=== PATIENT | female | born 2000 | race Caucasian/White ===

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

== ENCOUNTER 2021-01-03 22:41 | Emergency (ER) | payer MEDICAID, SELFPAY ==
[2020-11-01 10:48] VITALS: BP 114/78; BMI 40.5
[2021-01-03 22:45] VITALS: BP 107/59; PULSE 78; RESP 18; TEMP 37.1; O2SAT 98; BMI 42.4
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
[2021-01-03 23:45] LABS: Glucose Urine UA Norm (Normal); Ketones Urine Negative (Negative); Protein Urine Neg (Negative); Urine Appearance Hazy (CLEAR); Urine Color Yellow (Yellow); pH Urine 5 (5-7)
[2021-01-03 23:46] LABS: Bacteria Urine 3+ /hpf; Bilirubin Urine Neg (Negative); Blood Urine Neg (Negative); Leukocyte Esterase Urine Trace (Negative); Mucus Urine 1+ /hpf; Nitrate Urine Negative (Negative); RBC Urine 0-4 /hpf (0-2); Urobilinogen Urine Norm (Negative)
[2021-01-03 23:47] LABS: Add Urine Culture? Yes; Amorphous Sediment Urine TRACE /hpf
[2021-01-04 00:39] LABS: Basophils % 0.5 %; Eosinophils # 0.1 10^3/uL (0.0-0.8); Eosinophils % 1.6 %; Hematocrit 35.8 % (37.0-47.0); Hemoglobin 11.8 g/dL (11.5-15.3); Lymphocytes % 27.1 %; Mean Corpuscular Hemoglobin 30.2 pg (28.0-34.0); Mean Corpuscular Volume 91.6 fl (81-99); Mean Platelet Volume 9.7 fL (7.4-10.4); Monocytes # 0.5 10^3/uL (0.2-0.9); Monocytes % 6.8 %; Neutrophils # 4.69 10^3/uL (1.8-8.0); Neutrophils % 63.9 %; Nucleated Red Blood Cells % 0 %; Platelet Count 203 10^3/cmm (130-400); Red Blood Count 3.91 10^6/uL (4.1-5.3); White Blood Count 7.4 10^3/uL (4.5-13.0)
[2021-01-04] MEDS: acetaminophen 500 mg Tablet 1000 MG PO (00:44)
[2021-01-04 01:03] LABS: Alanine Aminotransferase 27 U/L (0-33); Albumin Level 3.9 g/dL (3.5-5.2); Alkaline Phosphatase 59 IU/L (35-105); Anion Gap 15.7 (5-19); Aspartate Amino Transferase 17 U/L (0-32); Blood Urea Nitrogen 11 mg/dL (6-20); Calcium 8.2 mg/dL (8.5-10.5); Carbon Dioxide 24 mmol/L (22-29); Chloride 101 mmol/L (98-107); Globulin 2.2 g/dL (1.3-4.6); Glomerular Filtration Rate 107.8 mL/min (90-130); Glucose 84 mg/dL (65-115); Osmolality Calculated 283 mOsm/kg (285-295); Potassium 3.7 mmol/L (3.5-5.1); Sodium 137 mmol/L (136-145); Total Bilirubin 0.3 mg/dL (0.15-1.2); Total Protein 6.1 g/dL (6.6-8.7)
[2021-01-04 01:39] VITALS: BP 103/69; PULSE 76; RESP 17; O2SAT 97
== END 2021-01-04 01:43 | disposition home or self-care (01) ==
PROVIDERS: Emergency Provider Physician Assistant
DX: O23.41 Unspecified infection of urinary tract in pregnancy, first trimester (principal); O26.891 Other specified pregnancy related conditions, first trimester; R10.9 Unspecified abdominal pain; Z3A.01 Less than 8 weeks gestation of pregnancy; Z87.891 Personal history of nicotine dependence
CPT/HCPCS: 73562; 76815; 76817; 80053; 81001; 84702; 85025; 87086; 99283

== ENCOUNTER → 2021-01-06 13:00 | Outpatient (BNVA) | payer OTHER, MEDICAID, SELFPAY ==
[2020-11-01 10:48] VITALS: BP 114/78; BMI 40.5
== END ==
PROVIDERS: Visit Provider Psychiatry & Neurology Psychiatry
DX: F33.0 Major depressive disorder, recurrent, mild (principal); F43.10 Post-traumatic stress disorder, unspecified; R41.83 Borderline intellectual functioning
CPT/HCPCS: 99215

== ENCOUNTER → 2021-01-20 10:53 | Outpatient (BNVA) | payer MEDICAID, SELFPAY ==
[2020-11-01 10:48] VITALS: BP 114/78; BMI 40.5
== END ==
PROVIDERS: Visit Provider Nurse Practitioner Women's Health
DX: Z34.80 Encounter for supervision of other normal pregnancy, unspecified trimester (principal)
CPT/HCPCS: 81000

== ENCOUNTER 2021-01-21 21:30 | Emergency (ER) | payer MEDICAID, SELFPAY ==
[2020-11-01 10:48] VITALS: BP 114/78; BMI 40.5
[2021-01-21 21:30] VITALS: PULSE 79; RESP 20; O2SAT 97
[2021-01-21] MEDS: albuterol 8 gm MDI 2 PUFF INHALATION (21:30)
[2021-01-21 21:35] VITALS: BP 124/85; PULSE 79; PULSE 81; RESP 20; TEMP 36.8; O2SAT 91; O2SAT 97; BMI 35.9
[2021-01-21 21:41] VITALS: PULSE 74; O2SAT 95
--- NOTE | 2021-01-21 21:56 | ED_ITS ---
HPI - SOB/Dyspnea General: Chief Complaint: Shortness of Breath/Dyspnea Stated Complaint: Coughing\SOB 8wk Time Seen by Provider: 01/21/21 21:54 History of Present Illness: HPI Narrative: 20-year-old female comes in today with complaints of shortness of breath. Patient has a history of asthma. Patient reports for the last week she has had difficulty with her breathing. Patient has also had some nausea and vomiting on and off for the last week. Review of Systems General: Reports: 10 or more systems reviewed and unremarkable except in HPI and below Resp: Reports: dyspnea PFSH ED PFSH: Medical History (Updated 01/21/21 @ 23:58 by ABRAHAN Leone) Abdominal pain in female Asthma has needed her rescue inhaler MDD (major depressive disorder), recurrent episode, mild managed by Dr. Martin at [facility] No pertinent past medical history neghx: htn,dm,thyroid,dvt/pe Oligomenorrhea PTSD (post-traumatic stress disorder) Surgical History History of elbow surgery (~2011) L elbow Family History Father Diabetes Hypertension Grandfather , old age Diabetes Hypertension Denies family history of Colon cancer Ovarian cancer Heart disease Hypercholesteremia Breast cancer Uterine cancer Thyroid disease Stroke Social History Smoking and tobacco status: former smoker (vape) Second hand smoke exposure: No Alcohol intake: never Desire information about alcohol rehabilitation?: No Desire information about substance/drug rehabilitation?: No Female Reproductive History: Date of last menstrual period: 11/06/20 Para: 0 Spontaneous abortions: No Physical Exam Const: COMMON NORMALS: no acute distress and patient oriented x3 GENERAL APPEARANCE: cooperative HENMT: COMMON NORMALS: normocephalic, TM's normal bilaterally and Normal external nose present HEAD & SCALP: normal to inspection and normocephalic NOSE: Normal external nose present TYMPANIC MEMBRANE: TM's normal bilaterally MOUTH: Normal oral and palatal mucosa present THROAT: posterior oropharynx normal Eye: GENERAL EYE: appearance normal, both eyes and all related structures Neck/C-Spine: COMMON NORMALS: full ROM Lymph: LYMPHATIC: no lymphadenopathy noted Chest: COMMONS NORMALS: normal inspection of the chest Resp: COMMON NORMALS: normal respiratory effort EFFORT & INSPECTION: Yes able to speak in complete sentences AUSCULTATION: wheezes Cardio: COMMON NORMALS: regular rate and regular rhythm RATE: regular rate RHYTHM: regular rhythm GI: COMMON NORMALS: non-tender : COMMON NORMALS: Yes no CVA tenderness BLADDER/KIDNEY EXAM: Yes no CVA tenderness Back/Pelvis: COMMON NORMALS: no CVA tenderness and thoracic and lumbar spine normal to inspection Extremity: COMMON NORMALS: normal to inspection Neuro: COMMON NORMALS: patient oriented x3 and moves all extremities Psych: COMMON NORMALS: mental status grossly normal and cooperative Skin: COMMON NORMALS: no rashes or lesions noted GENERAL SKIN EXAM: no rashes or lesions noted Course Vital Signs: Vital signs: Vital Signs Temperature 98.2 F 01/21/21 21:35 Pulse Rate 65 01/21/21 23:00 Respiratory Rate 22 H 01/21/21 23:00 Blood Pressure 102/44 01/21/21 23:00 Pulse Oximetry 96 01/21/21 23:00 MDM - SOB/Dyspnea MDM Narrative: Medical decision making narrative: Patient comes in with shortness of breath. On exam patient has wheezing throughout her lung petersen. Skin was warm and dry vital signs were normal. Differential diagnosis includes COVID-19, exacerbation of asthma, pneumonia. Patient was given albuterol inhalation with improvement of air movement throughout lung petersen. Patient was given a dose of Solu-Medrol. Patient was encouraged to drink plenty of fluids. Patient will be continued on MDI inhaler for albuterol, Advair Diskus, and a short burst of steroid prednisone. Patient was written for some Zofran to help with nausea. Patient was encouraged to drink plenty of fluids and follow-up with primary care in 3 days for recheck. Patient was also recommended return for worsening symptoms. Lab Data: Labs: Lab Results 01/21/21 01/21/21 01/21/21 Range/Units 21:41 22:30 22:30 WBC 10.1 (4.5-13.0) 10^3/ uL RBC 4.35 (4.1-5.3) 10^6/u L Hgb 13.0 (11.5-15.3) g/dL Hct 40.3 (37.0-47.0) % MCV 92.6 (81-99) fl MCH 29.9 (28.0-34.0) pg MCHC 32.3 (30.0-36.0) g/dL RDW 12.3 (12.1-15.1) % Plt Count 233 (130-400) 10^3/c mm MPV 10.2 (7.4-10.4) fL Neut % (Auto) 74.9 % Lymph % (Auto) 15.0 % [place] % (Auto) 6.3 % Eos % (Auto) 3.0 % Baso % (Auto) 0.5 % Neut # (Auto) 7.56 (1.8-8.0) 10^3/u L Lymph # (Auto) 1.5 (1.5-6.5) 10^3/u L [place] # (Auto) 0.6 (0.2-0.9) 10^3/u L Eos # (Auto) 0.3 (0.0-0.8) 10^3/u L Baso # (Auto) 0.1 (0.0-0.1) 10^3/u L Nucleated RBC % (a uto) 0 % Nucleated RBCs # 0.0 /100WBC Sodium 137 (136-145) mmol/L Potassium 3.9 (3.5-5.1) mmol/L Chloride 103 (98-107) mmol/L Carbon Dioxide 21 L (22-29) mmol/L Anion Gap 16.9 (5-19) BUN 11 (6-20) mg/dL Creatinine 0.5 (0.5-0.9) mg/dL GFR Calculation 158.9 H (90-130) mL/min Glucose 94 (65-115) mg/dL Calculated Osmolal ity 283 L (285-295) mOsm/k g Calcium 8.6 (8.5-10.5) mg/dL Total Bilirubin 0.5 (0.15-1.2) mg/dL AST 61 H (0-32) U/L ALT 134 H (0-33) U/L Alkaline Phosphata se 93 (35-105) IU/L Total Protein 7.2 (6.6-8.7) g/dL Albumin 3.7 (3.5-5.2) g/dL Globulin 3.5 (1.3-4.6) g/dL HCG, Qual (Negative) Urine Color Yellow (Yellow) Urine Appearance Clear (CLEAR) Urine pH 5 (5-7) Ur Specific Gravit y 1.025 (1.005-1.030) Urine Protein Neg (Negative) Urine Glucose (UA) Norm (Normal) Urine Ketones Negative (Negative) Urine Blood Neg (Negative) Urine Nitrate Negative (Negative) Urine Bilirubin 1+ H (Negative) Urine Urobilinogen 1 H (Negative) mg/dL Ur Leukocyte Mabel ase Negative (Negative) SARS-CoV-2 Ag (Rap id) (Negative) 01/21/21 01/21/21 Range/Units 22:30 22:30 WBC (4.5-13.0) 10^3/ uL RBC (4.1-5.3) 10^6/u L Hgb (11.5-15.3) g/dL Hct (37.0-47.0) % MCV (81-99) fl MCH (28.0-34.0) pg MCHC (30.0-36.0) g/dL RDW (12.1-15.1) % Plt Count (130-400) 10^3/c mm MPV (7.4-10.4) fL Neut % (Auto) % Lymph % (Auto) % [place] % (Auto) % Eos % (Auto) % Baso % (Auto) % Neut # (Auto) (1.8-8.0) 10^3/u L Lymph # (Auto) (1.5-6.5) 10^3/u L [place] # (Auto) (0.2-0.9) 10^3/u L Eos # (Auto) (0.0-0.8) 10^3/u L Baso # (Auto) (0.0-0.1) 10^3/u L Nucleated RBC % (a uto) % Nucleated RBCs # /100WBC Sodium (136-145) mmol/L Potassium (3.5-5.1) mmol/L Chloride (98-107) mmol/L Carbon Dioxide (22-29) mmol/L Anion Gap (5-19) BUN (6-20) mg/dL Creatinine (0.5-0.9) mg/dL GFR Calculation (90-130) mL/min Glucose (65-115) mg/dL Calculated Osmolal ity (285-295) mOsm/k g Calcium (8.5-10.5) mg/dL Total Bilirubin (0.15-1.2) mg/dL AST (0-32) U/L ALT (0-33) U/L Alkaline Phosphata se (35-105) IU/L Total Protein (6.6-8.7) g/dL Albumin (3.5-5.2) g/dL Globulin (1.3-4.6) g/dL HCG, Qual Positive H (Negative) Urine Color (Yellow) Urine Appearance (CLEAR) Urine pH (5-7) Ur Specific Gravit y (1.005-1.030) Urine Protein (Negative) Urine Glucose (UA) (Normal) Urine Ketones (Negative) Urine Blood (Negative) Urine Nitrate (Negative) Urine Bilirubin (Negative) Urine Urobilinogen (Negative) mg/dL Ur Leukocyte Mabel ase (Negative) SARS-CoV-2 Ag (Rap id) Negative (Negative) Discharge Plan Discharge Patient Disposition: Home Clinical Impression: Asthma Qualifiers: Asthma severity: mild Asthma persistence: intermittent Asthma complication type: with acute exacerbation Qualified Code(s): J45.21 - Mild intermittent asthma with (acute) exacerbation Condition: Stable Prescriptions: New Advair Diskus 100-50 mcg/dose blister with device 1 inh inhalation BID Qty: 60 RF: 0 prednisone 20 mg tablet 40 mg PO DAILY Qty: 10 RF: 0 ondansetron 4 mg tablet,disintegrating 4 mg PO Q8H PRN (Reason: nausea and vomiting) Qty: 14 RF: 0 albuterol sulfate 90 mcg/actuation HFA aerosol inhaler 2 inh inhalation Q4H PRN (Reason: shortness of breath or wheezing) Qty: 8.5 RF: 0 No Action fluoxetine [Prozac] 20 mg capsule 20 mg PO DAILY Qty: 30 RF: 5 1 tab PO DAILY RF: 0 Discharge Orders: Discharge ED (Routine); Ordered 01/21/21 Ordered By: Rhett Lott Discharge Diet: Usual diet Discharge Activity: Increase activity as tolerated Patient Instructions: Asthma (ED), Opioid Safety Activity Restrictions/Additional Instructions: Home and rest. Continue with albuterol inhaler 2 puffs every 4 hours for wheezing or respiratory difficulty. Take prednisone 40 mg daily for the next 5 days. Use Advair Diskus 1 inhalation twice a day. Use ondansetron 4 mg every 8 hours as needed for nausea. Return to the ER for worsening symptoms. Follow- up with primary care in 1 week. Coding Level of Care Code ED Precision Dancer for Leonides Okeefe
[2021-01-21] MEDS: ondansetron 2 mg/ML SDV 2 mL 4 MG IVP (22:29)
[2021-01-21] MEDS: sodium chloride 0.9% 1,000 ML 999 ML IV (22:31)
[2021-01-21 22:32] LABS: Basophils # 0.1 10^3/uL (0.0-0.1); Basophils % 0.5 %; Eosinophils # 0.3 10^3/uL (0.0-0.8); Hematocrit 40.3 % (37.0-47.0); Lymphocytes # 1.5 10^3/uL (1.5-6.5); Mean Corpuscular HGB Conc 32.3 g/dL (30.0-36.0); Mean Corpuscular Hemoglobin 29.9 pg (28.0-34.0); Mean Corpuscular Volume 92.6 fl (81-99); Mean Platelet Volume 10.2 fL (7.4-10.4); Monocytes # 0.6 10^3/uL (0.2-0.9); Monocytes % 6.3 %; Neutrophils # 7.56 10^3/uL (1.8-8.0); Neutrophils % 74.9 %; Nucleated Red Blood Cells % 0 %; Platelet Count 233 10^3/cmm (130-400); Red Blood Count 4.35 10^6/uL (4.1-5.3); Red Cell Distribution Width 12.3 % (12.1-15.1); White Blood Count 10.1 10^3/uL (4.5-13.0)
[2021-01-21 22:45] LABS: HCG, Serum Qual Positive (Negative)
[2021-01-21 22:50] LABS: Alanine Aminotransferase 134 U/L (0-33); Albumin Level 3.7 g/dL (3.5-5.2); Alkaline Phosphatase 93 IU/L (35-105); Anion Gap 16.9 (5-19); Aspartate Amino Transferase 61 U/L (0-32); Blood Urea Nitrogen 11 mg/dL (6-20); Calcium 8.6 mg/dL (8.5-10.5); Carbon Dioxide 21 mmol/L (22-29); Chloride 103 mmol/L (98-107); Globulin 3.5 g/dL (1.3-4.6); Glomerular Filtration Rate 158.9 mL/min (90-130); Glucose 94 mg/dL (65-115); Osmolality Calculated 283 mOsm/kg (285-295); Potassium 3.9 mmol/L (3.5-5.1); Sodium 137 mmol/L (136-145); Total Bilirubin 0.5 mg/dL (0.15-1.2); Total Protein 7.2 g/dL (6.6-8.7)
[2021-01-21 22:54] LABS: Add Urine Microscopic? NO; Charge for UA Resulting for Rev
[2021-01-21 23:00] VITALS: BP 102/44; PULSE 65; RESP 22; O2SAT 96
[2021-01-21 23:02] LABS: Bilirubin Urine 1+ (Negative); Blood Urine Neg (Negative); Glucose Urine UA Norm (Normal); Ketones Urine Negative (Negative); Leukocyte Esterase Urine Negative (Negative); Nitrate Urine Negative (Negative); Protein Urine Neg (Negative); Specific Gravity, Urine 1.025 (1.005-1.030); Urine Appearance Clear (CLEAR); Urine Color Yellow (Yellow); Urobilinogen Urine 1 mg/dL (Negative); pH Urine 5 (5-7)
[2021-01-21 23:28] LABS: SARS Covid-2 Antigen Negative (Negative)
[2021-01-22 00:21] VITALS: BP 94/58; PULSE 81; RESP 16; O2SAT 96
== END 2021-01-22 00:23 | disposition home or self-care (01) ==
PROVIDERS: Emergency Provider Nurse Practitioner Family
DX: O26.891 Other specified pregnancy related conditions, first trimester (principal); J45.21 Mild intermittent asthma with (acute) exacerbation; Z87.891 Personal history of nicotine dependence; Z20.822 Contact with and (suspected) exposure to COVID-19; Z3A.08 8 weeks gestation of pregnancy
CPT/HCPCS: 80053; 81003; 84703; 85025; 87426; 94640; 96361; 96374; 96375; 99284; J2405; J2930; J3535; J7030

== ENCOUNTER 2021-02-17 11:15 | Emergency (ER) | payer MEDICAID, SELFPAY ==
[2020-11-01 10:48] VITALS: BP 114/78; BMI 40.5
[2021-02-17] VITALS (7 sets, daily range): BP systolic 100–139; BP diastolic 56–100; PULSE 62–84; RESP 16–18; TEMP 36; O2SAT 97–100; BMI 41.5
--- NOTE | 2021-02-17 13:42 | ED_ITS ---
HPI - Fall General: Chief Complaint: Fall Stated Complaint: FELL 4 STEPS,LANDED ON BACK,H/A,STOMACH BURN Time Seen by Provider: 02/17/21 13:29 History of Present Illness: HPI Narrative: 20 yo female presents emergency room with complaints of a fall. She is approximately 12 weeks fell down 4 steps hit her back she has abrasion on her back he is uncertain if she lost consciousness. She denies striking her head she was quite stunned she denies any vaginal discharge or bleeding. MD complaint: fall Onset (ago): minute(s) Fall from: standing and down stairs (#) (4) Place fall occurred: street Loss of consciousness: Unsure Prolonged down time: no Context: tripped/slipped Location of injury: back Severity: moderate Quality: aching Associated symptoms-after fall: Denies abdominal pain, chest pain, confusion, difficulty walking, headache(s), hematuria, lightheadedness, numbness, short of breath, vertigo or weakness Review of Systems Const: Denies: fever(s), chills, body aches, change in appetite, fatigue or malaise ENMT: Denies: throat pain, ear or mastoid pain, nasal discharge or nasal congestion Card: Denies: chest pain or lightheadedness Resp: Denies: dyspnea, productive cough or non-productive cough GI: Denies: abdominal pain : Denies: hematuria Skin/Breast: Denies: rash or pruritus Neuro: Denies: headache(s), difficulty walking, vertigo or confusion PFSH ED PFSH: Medical History Abdominal pain in female Asthma has needed her rescue inhaler MDD (major depressive disorder), recurrent episode, mild managed by Dr. Martin at [facility] No pertinent past medical history neghx: htn,dm,thyroid,dvt/pe Oligomenorrhea PTSD (post-traumatic stress disorder) Surgical History History of elbow surgery (~2011) L elbow Family History Father Diabetes Hypertension Grandfather , old age Diabetes Hypertension Denies family history of Colon cancer Ovarian cancer Heart disease Hypercholesteremia Breast cancer Uterine cancer Thyroid disease Stroke Social History Smoking and tobacco status: former smoker (vape) Second hand smoke exposure: No Alcohol intake: never Desire information about alcohol rehabilitation?: No Desire information about substance/drug rehabilitation?: No Female Reproductive History: Date of last menstrual period: 11/06/20 Para: 0 Spontaneous abortions: No Physical Exam Const: COMMON NORMALS: no acute distress GENERAL APPEARANCE: cooperative and comfortable ORIENTATION/CONSCIOUSNESS: Yes awake, Yes oriented to person, Yes oriented to place and Yes oriented to time HENMT: COMMON NORMALS: normocephalic, atraumatic and hearing grossly normal bilaterally HEAD & SCALP: normocephalic and atraumatic Neck/C-Spine: COMMON NORMALS: no JVD Resp: COMMON NORMALS: normal respiratory effort, No retractions, No use of accessory muscles and clear to auscultation bilaterally AUSCULTATION: clear to auscultation bilaterally Cardio: COMMON NORMALS: no JVD, regular rate, regular rhythm and No murmurs present (Cardio) RATE: regular rate RHYTHM: regular rhythm GI: COMMON NORMALS: Soft to palpation and No hepatosplenomegaly present AUSCULTATION: Yes normoactive bowel sounds PALPATION: Yes Soft to palpation, No Tenderness to palpation present (GI), No Guarding due to palpation present (GI) and Yes No hepatosplenomegaly present Extremity: COMMON NORMALS: normal to inspection, capillary refill normal, no clubbing, cyanosis or edema, no calf tenderness and no pedal edema Neuro: SENSORIUM/ORIENTATION: Yes oriented to person, Yes oriented to place and Yes oriented to time Skin: COMMON NORMALS: no rashes or lesions noted GENERAL SKIN EXAM: no rashes or lesions noted Course Vital Signs: Vital signs: Vital Signs Temperature 96.8 F L 02/17/21 11:46 Pulse Rate 78 02/17/21 11:46 Respiratory Rate 16 02/17/21 11:46 Blood Pressure 112/83 02/17/21 11:46 Pulse Oximetry 97 02/17/21 11:46 Discharge Plan Discharge Prescriptions: No Action fluoxetine [Prozac] 20 mg capsule 20 mg PO DAILY Qty: 30 RF: 5 1 tab PO DAILY RF: 0 fluticasone propion-salmeterol [Advair Diskus] 100-50 mcg/dose blister with device 1 inh inhalation BID Qty: 60 RF: 0 albuterol sulfate 90 mcg/actuation HFA aerosol inhaler 2 inh inhalation Q4H PRN (Reason: shortness of breath or wheezing) Qty: 8.5 RF: 0 Coding Level of Care Code ED Education Program Specialist for Leonides Okeefe
--- NOTE | 2021-02-17 13:47 | XR_ITS ---
WS: [id number] CERVICAL SPINE 3 VIEWS HISTORY: fall COMPARISON: 06/13/2013. Patient's head is tilted to the RIGHT. Similar to the prior study 06/13/2013. Posterior vertebral body alignment is normal. Disc spaces are normal. No prevertebral soft tissue sherice ma. Spinous processes are poorly visualized. Odontoid is intact. There is mild asymmetry of the lateral masses with respect to the odontoid proces s. Mild narrowing of the LEFT joint space which could very well be due to positioning and also simila r to the prior study of 2013. XR/XR cervical spine 3V* [id number] IMPRESSION: 1. No cervical spine fracture. 2. Asymmetry of the LEFT lateral mass with respect to the odontoid and tilting of the head to the RIGHT. These findings were also present on the prior study from 2013 with no change.
--- NOTE | 2021-02-17 13:47 | XR_ITS ---
WS: [id number] Exam: XR thoracic spine 3V* [id number] Date/Time of Exam: 02/17/2021 2:06 PM Reason For Exam: pain fall Comparison 06/13/2013. Slight wedge deformity of a single lower thoracic vertebra noted which is unchanged and probably deve lopmental. No acute fracture is seen. Normal paraspinal soft tissues. No significant scoliosis. XR/XR thoracic spine 3V* [id number] IMPRESSION: 1. No acute fracture or malalignment.
--- NOTE | 2021-02-17 13:49 | CT_ITS ---
WS: [id number] CT HEAD NONCONTRAST HISTORY: fall possible LOC TECHNIQUE: Contiguous axial imaging performed through the brain in 2.5 mm imaging. Bone and soft tiss ue windows. Sagittal and coronal reformats reviewed. All CT scans at [facility] use at least one of these dose optimization techniques: automated exposure control; mA and/or kV adjustment per pa tient size (includes targeted exams where dose is matched to clinical indication); or iterative recon struction. DLP: 863.07 mGy.cm COMPARISON: 01/09/2018 No acute intracranial hemorrhage, midline shift or mass effect. No atrophy or prior infarcts or herniation. Ventricles: Normal size with no hydrocephalus. Paranasal sinuses: As visualized are clear. Mastoid air cells: Well pneumatized. Calvarium and scalp: Skull is intact with no soft tissue edema or swelling. CT/CT head wo con* [id number] IMPRESSION: Negative head CT.
--- NOTE | 2021-02-17 14:24 | W.ED.FALL ---
HPI - Fall General: Chief Complaint: Fall Stated Complaint: FELL 4 STEPS,LANDED ON BACK,H/A,STOMACH BURN Time Seen by Provider: 02/17/21 13:29 History of Present Illness: HPI Narrative: 20-year-old female presents to the emergency room complaining of low back pain. She fell on four stairs at the back of her head is not sure if she lost consciousness. She has no dysuria urgency or frequency no vaginal bleeding or discharge she is approximately 12 weeks. MD complaint: fall Onset (ago): minute(s) Fall from: standing Fall witnessed: no Place fall occurred: home and street Prolonged down time: no Context: tripped/slipped Location of injury: head and back Quality: aching Associated symptoms-after fall: Denies abdominal pain, chest pain, confusion, difficulty walking, headache(s), hematuria, lightheadedness, neck pain, numbness, short of breath, vertigo or weakness Review of Systems Const: Denies: fever(s), chills, body aches, change in appetite, fatigue or malaise ENMT: Denies: throat pain, ear or mastoid pain, nasal discharge or nasal congestion Card: Denies: chest pain or lightheadedness Resp: Denies: dyspnea, productive cough or non-productive cough GI: Denies: abdominal pain : Denies: hematuria Musc: Denies: neck pain Skin/Breast: Denies: rash or pruritus Neuro: Denies: headache(s), difficulty walking, vertigo or confusion PFSH ED PFSH: Medical History Abdominal pain in female Asthma has needed her rescue inhaler MDD (major depressive disorder), recurrent episode, mild managed by Dr. Martin at [facility] No pertinent past medical history neghx: htn,dm,thyroid,dvt/pe Oligomenorrhea PTSD (post-traumatic stress disorder) Surgical History History of elbow surgery (~2011) L elbow Family History Father Diabetes Hypertension Grandfather , old age Diabetes Hypertension Denies family history of Colon cancer Ovarian cancer Heart disease Hypercholesteremia Breast cancer Uterine cancer Thyroid disease Stroke Social History Smoking and tobacco status: former smoker (vape) Second hand smoke exposure: No Alcohol intake: never Desire information about alcohol rehabilitation?: No Desire information about substance/drug rehabilitation?: No Female Reproductive History: Date of last menstrual period: 11/06/20 Para: 0 Spontaneous abortions: No Physical Exam Const: COMMON NORMALS: no acute distress GENERAL APPEARANCE: cooperative and comfortable ORIENTATION/CONSCIOUSNESS: Yes awake, Yes oriented to person, Yes oriented to place and Yes oriented to time HENMT: COMMON NORMALS: normocephalic, atraumatic, hearing grossly normal bilaterally, external ears normal, EAC's normal, TM's normal bilaterally, Normal nasal mucous membranes and turbinates present, moist oral mucous membranes and oropharynx normal HEAD & SCALP: normocephalic and atraumatic NOSE: Normal nasal mucous membranes and turbinates present EXTERNAL EAR: Yes external ears normal EXTERNAL AUDITORY CANAL: EAC's normal TYMPANIC MEMBRANE: TM's normal bilaterally Eye: COMMON NORMALS: Equal, round and reactive pupils present, EOMs intact bilaterally, conjunctivae normal and no scleral icterus CONJUNCTIVA: Yes conjunctivae normal PUPIL: Yes Equal, round and reactive pupils present Neck/C-Spine: COMMON NORMALS: full ROM, no lymphadenopathy, supple and no JVD Lymph: LYMPHATIC: no lymphadenopathy noted and no lymphedema noted Resp: COMMON NORMALS: normal respiratory effort, No retractions, No use of accessory muscles and clear to auscultation bilaterally AUSCULTATION: clear to auscultation bilaterally Cardio: COMMON NORMALS: no JVD, regular rate, regular rhythm and No murmurs present (Cardio) RATE: regular rate RHYTHM: regular rhythm GI: COMMON NORMALS: Soft to palpation and No hepatosplenomegaly present AUSCULTATION: Yes normoactive bowel sounds PALPATION: Yes Soft to palpation, No Tenderness to palpation present (GI), No Guarding due to palpation present (GI) and Yes No hepatosplenomegaly present Extremity: COMMON NORMALS: normal to inspection, capillary refill normal, no clubbing, cyanosis or edema, no calf tenderness and no pedal edema Neuro: SENSORIUM/ORIENTATION: Yes oriented to person, Yes oriented to place and Yes oriented to time Skin: COMMON NORMALS: no rashes or lesions noted GENERAL SKIN EXAM: no rashes or lesions noted Course Vital Signs: Vital signs: Vital Signs Temperature 96.8 F L 02/17/21 11:46 Pulse Rate 69 02/17/21 16:39 Respiratory Rate 18 02/17/21 16:39 Blood Pressure 100/78 02/17/21 16:39 Pulse Oximetry 100 02/17/21 16:39 MDM - Fall MDM Narrative: Medical decision making narrative: Labs and imaging reviewed initial evaluation and repeat exam unremarkable. Reassurance given. At this point in uterus is still within the pelvis and is not subjective to any significant trauma from what she had today she denies any vaginal bleeding or discharge follow-up with her primary care doctor is any return of his further problems. Lab Data: Labs: Lab Results 02/17/21 02/17/21 02/17/21 14:10 14:10 14:30 WBC 7.1 10^3/uL 10^3/ uL (4.5-13.0) RBC 4.48 10^6/uL 10^6 /uL (4.1-5.3) Hgb 13.5 g/dL g/dL (11.5-15.3) Hct 40.6 % % (37.0-47.0) MCV 90.6 fl fl (81-99) MCH 30.1 pg pg (28.0-34.0) MCHC 33.3 g/dL g/dL (30.0-36.0) RDW 12.6 % % (12.1-15.1) Plt Count 179 10^3/cmm 10^3 /cmm (130-400) MPV 10.1 fL fL (7.4-10.4) Neut % (Auto) 77.3 % % Lymph % (Auto) 16.4 % % [place] % (Auto) 5.6 % % Eos % (Auto) 0.3 % % Baso % (Auto) 0.1 % % Neut # (Auto) 5.48 10^3/uL 10^3 /uL (1.8-8.0) Lymph # (Auto) 1.2 10^3/uL L 10^ 3/uL (1.5-6.5) [place] # (Auto) 0.4 10^3/uL 10^3/ uL (0.2-0.9) Eos # (Auto) 0.0 10^3/uL 10^3/ uL (0.0-0.8) Baso # (Auto) 0.0 10^3/uL 10^3/ uL (0.0-0.1) Nucleated RBC % (a uto) 0 % % Nucleated RBCs # 0.0 /100WBC /100W BC Sodium 134 mmol/L L mmol /L (136-145) Potassium 3.8 mmol/L mmol/L (3.5-5.1) Chloride 99 mmol/L mmol/L (98-107) Carbon Dioxide 24 mmol/L mmol/L (22-29) Anion Gap 14.8 (5-19) BUN 7 mg/dL mg/dL (6-20) Creatinine 0.6 mg/dL mg/dL (0.5-0.9) GFR Calculation 128.8 mL/min mL/m in (90-130) Glucose 74 mg/dL mg/dL (65-115) Calculated Osmolal ity 275 mOsm/kg L mOs m/kg (285-295) Calcium 9.1 mg/dL mg/dL (8.5-10.5) Total Bilirubin 0.4 mg/dL mg/dL (0.15-1.2) AST 31 U/L U/L (0-32) ALT 59 U/L H U/L (0-33) Alkaline Phosphata se 61 IU/L IU/L (35-105) Total Protein 7.0 g/dL g/dL (6.6-8.7) Albumin 4.1 g/dL g/dL (3.5-5.2) Globulin 2.9 g/dL g/dL (1.3-4.6) Urine Color Dark yellow (Yellow) Urine Appearance Hazy A (CLEAR) Urine pH 5 (5-7) Ur Specific Gravit y 1.025 (1.005-1.030) Urine Protein Neg (Negative) Urine Glucose (UA) Norm (Normal) Urine Ketones 2+ H (Negative) Urine Blood Neg (Negative) Urine Nitrate Negative (Negative) Urine Bilirubin Neg (Negative) Urine Urobilinogen 1 mg/dL H mg/dL (Negative) Ur Leukocyte Mabel ase Trace H (Negative) Urine RBC 0-4 /hpf H /hpf (0-2) Urine WBC 5-10 /hpf H /hpf (0-5) Ur Squamous Epith Cells 5-10 /hpf H /hpf (0-5) Amorphous Sediment Not Reportable Urine Bacteria 3+ /hpf H /hpf (NONE) Urine Mucus 2+ /hpf /hpf Discharge Plan Discharge Patient Disposition: Home Clinical Impression: Fall, 12 weeks gestation of Condition: Stable Prescriptions: No Action fluoxetine [Prozac] 20 mg capsule 20 mg PO DAILY Qty: 30 RF: 5 1 tab PO DAILY RF: 0 fluticasone propion-salmeterol [Advair Diskus] 100-50 mcg/dose blister with device 1 inh inhalation BID Qty: 60 RF: 0 albuterol sulfate 90 mcg/actuation HFA aerosol inhaler 2 inh inhalation Q4H PRN (Reason: shortness of breath or wheezing) Qty: 8.5 RF: 0 Discharge Orders: Discharge ED (Routine); Ordered 02/17/21 Ordered By: Rip Suh Discharge Diet: Usual diet Discharge Activity: Increase activity as tolerated Patient Instructions: Opioid Safety Activity Restrictions/Additional Instructions: Follow-up with your primary care doctor as needed Tylenol as needed for pain return if worsening problems Coding Level of Care Code ED Credit Risk Management Director for Leonides Okeefe
[2021-02-17 14:31] LABS: Basophils % 0.1 %; Eosinophils % 0.3 %; Hematocrit 40.6 % (37.0-47.0); Hemoglobin 13.5 g/dL (11.5-15.3); Lymphocytes # 1.2 10^3/uL (1.5-6.5); Lymphocytes % 16.4 %; Mean Corpuscular HGB Conc 33.3 g/dL (30.0-36.0); Mean Corpuscular Hemoglobin 30.1 pg (28.0-34.0); Mean Corpuscular Volume 90.6 fl (81-99); Mean Platelet Volume 10.1 fL (7.4-10.4); Monocytes # 0.4 10^3/uL (0.2-0.9); Monocytes % 5.6 %; Neutrophils # 5.48 10^3/uL (1.8-8.0); Neutrophils % 77.3 %; Nucleated Red Blood Cells % 0 %; Platelet Count 179 10^3/cmm (130-400); Red Blood Count 4.48 10^6/uL (4.1-5.3); Red Cell Distribution Width 12.6 % (12.1-15.1); White Blood Count 7.1 10^3/uL (4.5-13.0)
[2021-02-17 14:49] LABS: Alanine Aminotransferase 59 U/L (0-33); Albumin Level 4.1 g/dL (3.5-5.2); Alkaline Phosphatase 61 IU/L (35-105); Anion Gap 14.8 (5-19); Aspartate Amino Transferase 31 U/L (0-32); Blood Urea Nitrogen 7 mg/dL (6-20); Calcium 9.1 mg/dL (8.5-10.5); Carbon Dioxide 24 mmol/L (22-29); Chloride 99 mmol/L (98-107); Globulin 2.9 g/dL (1.3-4.6); Glomerular Filtration Rate 128.8 mL/min (90-130); Glucose 74 mg/dL (65-115); Osmolality Calculated 275 mOsm/kg (285-295); Potassium 3.8 mmol/L (3.5-5.1); Sodium 134 mmol/L (136-145); Total Bilirubin 0.4 mg/dL (0.15-1.2)
[2021-02-17 15:04] LABS: Glucose Urine UA Norm (Normal); Protein Urine Neg (Negative); Specific Gravity, Urine 1.025 (1.005-1.030); Urine Appearance Hazy (CLEAR); Urine Color Dark Yellow (Yellow); pH Urine 5 (5-7)
[2021-02-17 15:05] LABS: Add Urine Microscopic? YES; Bilirubin Urine Neg (Negative); Blood Urine Neg (Negative); Ketones Urine 2+ (Negative); Leukocyte Esterase Urine Trace (Negative); Nitrate Urine Negative (Negative); RBC Urine 0-4 /hpf (0-2); Urobilinogen Urine 1 mg/dL (Negative)
[2021-02-17 15:06] LABS: Add Urine Culture? Yes; Bacteria Urine 3+ /hpf; Mucus Urine 2+ /hpf
== END 2021-02-17 16:44 | disposition home or self-care (01) ==
PROVIDERS: Emergency Provider Family Medicine
DX: O9A.211 Injury, poisoning and certain other consequences of external causes complicating pregnancy, first trimester (principal); Z3A.12 12 weeks gestation of pregnancy; W10.8XXA Fall (on) (from) other stairs and steps, initial encounter; Z87.891 Personal history of nicotine dependence
CPT/HCPCS: 70450; 72040; 72072; 80053; 81001; 85025; 87086; 99283

== ENCOUNTER → 2021-02-22 14:35 | Outpatient (BNVA) | payer OTHER, MEDICAID, SELFPAY ==
[2020-11-01 10:48] VITALS: BP 114/78; BMI 40.5
== END ==
PROVIDERS: Visit Provider Psychiatry & Neurology Psychiatry
DX: F33.42 Major depressive disorder, recurrent, in full remission (principal); F43.10 Post-traumatic stress disorder, unspecified; R41.83 Borderline intellectual functioning
CPT/HCPCS: 99213

== ENCOUNTER → 2021-02-23 10:48 | Outpatient (BNVA) | payer MEDICAID, SELFPAY ==
[2020-11-01 10:48] VITALS: BP 114/78; BMI 40.5
== END ==
PROVIDERS: Visit Provider Obstetrics & Gynecology
DX: Z34.01 Encounter for supervision of normal first pregnancy, first trimester (principal)
CPT/HCPCS: 80307; 81000; 82950; 84443; 85025; 86592; 86762; 86803; 86850; 86900; 87086; 87340; 87491; 87591; 87661; 87806

== ENCOUNTER → 2021-03-16 12:49 | Outpatient (BNVA) | payer MEDICAID, SELFPAY ==
[2020-11-01 10:48] VITALS: BP 114/78; BMI 40.5
== END ==
PROVIDERS: Visit Provider Obstetrics & Gynecology
DX: Z34.80 Encounter for supervision of other normal pregnancy, unspecified trimester (principal)
CPT/HCPCS: 81000; 81511

== ENCOUNTER → 2021-04-19 09:21 | Outpatient (BNVA) | payer OTHER, SELFPAY ==
[2020-11-01 10:48] VITALS: BP 114/78; BMI 40.5
== END ==
PROVIDERS: Visit Provider Psychiatry & Neurology Psychiatry
DX: F33.42 Major depressive disorder, recurrent, in full remission (principal); F43.10 Post-traumatic stress disorder, unspecified; R41.83 Borderline intellectual functioning
CPT/HCPCS: 99213

== ENCOUNTER → 2021-04-24 13:11 | Outpatient (BNVA) | payer MEDICAID, SELFPAY ==
[2020-11-01 10:48] VITALS: BP 114/78; BMI 40.5
== END ==
PROVIDERS: Visit Provider Obstetrics & Gynecology
DX: Z34.80 Encounter for supervision of other normal pregnancy, unspecified trimester (principal)
CPT/HCPCS: 81000

== ENCOUNTER → 2021-05-05 15:25 | Outpatient (BNVA) | payer MEDICAID, SELFPAY ==
[2020-11-01 10:48] VITALS: BP 114/78; BMI 40.5
== END ==
PROVIDERS: Visit Provider Obstetrics & Gynecology
DX: N92.0 Excessive and frequent menstruation with regular cycle (principal); O26.899 Other specified pregnancy related conditions, unspecified trimester; R10.9 Unspecified abdominal pain
CPT/HCPCS: 81000; 87086

== ENCOUNTER → 2021-05-11 09:01 | Outpatient (BNVA) | payer MEDICAID, SELFPAY ==
[2020-11-01 10:48] VITALS: BP 114/78; BMI 40.5
== END ==
PROVIDERS: Visit Provider Obstetrics & Gynecology
DX: Z34.80 Encounter for supervision of other normal pregnancy, unspecified trimester (principal)
CPT/HCPCS: 81000

== ENCOUNTER 2021-05-15 18:50 | Outpatient (CLI) | payer MEDICAID, SELFPAY ==
[2020-11-01 10:48] VITALS: BP 114/78; BMI 40.5
[2021-05-15] VITALS (28 sets, daily range): BP systolic 103–130; BP diastolic 68–77; PULSE 63–90; RESP 16; TEMP 36.4; O2SAT 98–100; BMI 44.6
--- NOTE | 2021-05-15 19:30 | USR_ITS ---
PROCEDURE INFORMATION: Exam: US , Limited Exam date and time: 05/15/2021 7:30 PM Age: 20 years old Clinical indication: Lmp or gestational age (in weeks): 24w 6d by lmp 08/29/2021 by lmp 26 w 0 d by u/s 08/21/2021 by u/s; Other: Spotting x 2 hours. Mild cramping. ; ; Patient HX: Spotting x 2 hrs. Mild cramping. ; Additional info: Placenta location; PT states bleeding and cramping TECHNIQUE: Imaging protocol: Real-time ultrasound of the maternal uterus with image documentation. Exam focused on the clinical indication. COMPARISON: US OB follow up [facility] 05/11/2021 9:18 AM FINDINGS: Gestation: Single intrauterine . heart rate: heart rate 150 bpm. heart rate 150 bpm. presentation: Vertex presentation. Placenta: Placenta is anterior fundal. Amniotic fluid index: Amniotic fluid index normal at 17. BIOMETRY: Gestational age (AUA): Ultrasonographic age 26 weeks 0 days. MATERNAL: Cervix: Cervix closed and normal in length measuring 4.1 cm. US/US OB limited [id number] IMPRESSION: 1. Single intrauterine . 2. heart rate 150 bpm. 3. Ultrasonographic age 26 weeks 0 days. 4. heart rate 150 bpm. 5. Amniotic fluid index normal at 17. 6. Placenta is anterior fundal. 7. Vertex presentation. 8. Cervix closed and normal in length measuring 4.1 cm.
[2021-05-15 20:01] LABS: Add Urine Microscopic? YES; Bilirubin Urine Neg (Negative); Blood Urine 3+ (Negative); Glucose Urine UA Norm (Normal); Ketones Urine Negative (Negative); Leukocyte Esterase Urine Negative (Negative); Nitrate Urine Negative (Negative); Specific Gravity, Urine 1.025 (1.005-1.030); Urine Appearance Clear (CLEAR); Urine Color Yellow (Yellow); Urobilinogen Urine 1 mg/dL (Negative); pH Urine 5 (5-7)
[2021-05-15 20:26] LABS: Protein Urine Trace (Negative)
[2021-05-15 20:27] LABS: Add Urine Culture? Yes; Bacteria Urine 3+ /hpf; Calcium Oxalate Crystals Urine 0-4 /hpf; Mucus Urine 2+ /hpf; RBC Urine 50-80 /hpf (0-2); WBC Urine RARE /hpf (0-5)
== END 2021-05-15 21:05 | disposition home or self-care (01) ==
LOC: OPOB 18:55 → OBGYN 18:58
PROVIDERS: Visit Provider Obstetrics & Gynecology
DX: O26.899 Other specified pregnancy related conditions, unspecified trimester (principal); Z3A.00 Weeks of gestation of pregnancy not specified; N89.8 Other specified noninflammatory disorders of vagina; R10.9 Unspecified abdominal pain; M54.9 Dorsalgia, unspecified
CPT/HCPCS: 76815; 81001; 87086; 99211

== ENCOUNTER → 2021-06-12 10:31 | Outpatient (BNVA) | payer MEDICAID, SELFPAY ==
[2020-11-01 10:48] VITALS: BP 114/78; BMI 40.5
== END ==
PROVIDERS: PCP Pediatrics Adolescent Medicine; Visit Provider Obstetrics & Gynecology
DX: O99.340 Other mental disorders complicating pregnancy, unspecified trimester (principal); F32.9 Major depressive disorder, single episode, unspecified; J45.21 Mild intermittent asthma with (acute) exacerbation; O99.211 Obesity complicating pregnancy, first trimester; O99.343 Other mental disorders complicating pregnancy, third trimester; O99.513 Diseases of the respiratory system complicating pregnancy, third trimester; O99.213 Obesity complicating pregnancy, third trimester; Z3A.28 28 weeks gestation of pregnancy
CPT/HCPCS: 82950; 84443; 85025

== ENCOUNTER → 2021-06-30 10:44 | Outpatient (BNVA) | payer MEDICAID, SELFPAY ==
[2020-11-01 10:48] VITALS: BP 114/78; BMI 40.5
== END ==
PROVIDERS: PCP Pediatrics Adolescent Medicine; Visit Provider Obstetrics & Gynecology
DX: Z34.80 Encounter for supervision of other normal pregnancy, unspecified trimester (principal)
CPT/HCPCS: 81000

== ENCOUNTER 2021-07-01 15:45 | Outpatient (CLI) | payer MEDICAID, SELFPAY ==
[2020-11-01 10:48] VITALS: BP 114/78; BMI 40.5
[2021-07-01 15:55] VITALS: BMI 47.5
[2021-07-01 16:02] VITALS: BP 126/80; PULSE 76; TEMP 36.5
[2021-07-01 16:23] VITALS: RESP 16
--- NOTE | 2021-07-01 16:23 | USR_ITS ---
PROCEDURE INFORMATION: Exam: US , Limited Exam date and time: 07/01/2021 4:23 PM Age: 21 years old Clinical indication: complicated by abdominal or pelvic pain; Left lower quadrant; Third trimester (=28 weeks 0 days); Gestational age or lmp: 34w1d; ; Patient HX: ; Additional info: Abdominal pain, evaluate placental location, evaluate for abruption and bpp, TECHNIQUE: Imaging protocol: Real-time ultrasound of the maternal uterus with image documentation. Exam focused on the clinical indication. COMPARISON: US OB limited [id number] 05/15/2021 8:14 PM FINDINGS: Gestation: Single intrauterine gestation. heart rate: 136 bpm. presentation: Cephalic presentation. Placenta: Anterior fundal grade 1-2 placenta. Amniotic fluid index: 15.4 cm. MATERNAL: Cervix: The cervix is suboptimally visualized and estimated at 4.8 cm in length. PROCEDURE INFORMATION: Exam: US Biophysical Profile Without Non-Stress Test Exam date and time: 07/01/2021 4:23 PM Age: 21 years old Clinical indication: complicated by abdominal or pelvic pain; Left lower quadrant; Third trimester (=28 weeks 0 days); Gestational age or lmp: 34w1d; ; Patient HX: ; Additional info: Abdominal pain, evaluate placental location, evaluate for abruption and bpp, TECHNIQUE: Imaging protocol: US biophysical profile without non-stress testing. COMPARISON: US OB limited [id number] 05/15/2021 8:14 PM FINDINGS: BIOPHYSICAL PROFILE: Breathin/2 Gross body movements: 2/2 tone: 2/2 Qualitative amniotic fluid: 2/2 Biophysical Profile Score: 8/8 US/US OB lmt w/ BPP wo NST IMPRESSION: 1. Single viable intrauterine gestation. 2. Anterior fundal placenta. 3. Cervical length estimated at 4.8 cm in length. IMPRESSION: Biophysical profile score is 8 out of 8.
[2021-07-01 17:45] VITALS: BP 108/76; PULSE 75
[2021-07-01 17:48] LABS: Actim Prom Negative
[2021-07-01 17:54] LABS: Add Urine Culture? Yes; Bacteria Urine 2+ /hpf; Bilirubin Urine Neg (Negative); Blood Urine Neg (Negative); Glucose Urine UA Norm (Normal); Ketones Urine Negative (Negative); Leukocyte Esterase Urine 1+ (Negative); Nitrate Urine Negative (Negative); Protein Urine Neg (Negative); Specific Gravity, Urine 1.005 (1.005-1.030); Urine Appearance SL Hazy (CLEAR); Urine Color Straw (Yellow); Urobilinogen Urine Norm (Negative); pH Urine 7 (5-7)
[2021-07-01 18:09] VITALS: BP 116/72; PULSE 75
[2021-07-01 18:30] VITALS: BP 116/72; PULSE 75
== END 2021-07-01 18:15 | disposition home or self-care (01) ==
LOC: OPOB 15:49 → OBGYN 15:51
PROVIDERS: Obstetrics & Gynecology; PCP Pediatrics Adolescent Medicine; Visit Provider Obstetrics & Gynecology
DX: O26.893 Other specified pregnancy related conditions, third trimester (principal); Z3A.34 34 weeks gestation of pregnancy; R10.2 Pelvic and perineal pain; R10.32 Left lower quadrant pain
CPT/HCPCS: 59025; 76815; 76819; 81001; 84112; 87086; 99211

== ENCOUNTER → 2021-07-06 09:17 | Outpatient (BNVA) | payer MEDICAID, SELFPAY ==
[2020-11-01 10:48] VITALS: BP 114/78; BMI 40.5
== END ==
PROVIDERS: PCP Pediatrics Adolescent Medicine; Visit Provider Obstetrics & Gynecology
DX: O99.211 Obesity complicating pregnancy, first trimester (principal); J45.21 Mild intermittent asthma with (acute) exacerbation; O99.340 Other mental disorders complicating pregnancy, unspecified trimester; F32.9 Major depressive disorder, single episode, unspecified; R41.83 Borderline intellectual functioning
CPT/HCPCS: 81000; 87086

== ENCOUNTER → 2021-07-10 15:50 | Outpatient (BNVA) | payer MEDICAID, SELFPAY ==
[2020-11-01 10:48] VITALS: BP 114/78; BMI 40.5
== END ==
PROVIDERS: PCP Pediatrics Adolescent Medicine; Visit Provider Obstetrics & Gynecology
DX: Z34.80 Encounter for supervision of other normal pregnancy, unspecified trimester (principal)
CPT/HCPCS: 81000; 87086

== ENCOUNTER → 2021-07-20 09:11 | Outpatient (BNVA) | payer MEDICAID, SELFPAY ==
[2020-11-01 10:48] VITALS: BP 114/78; BMI 40.5
== END ==
PROVIDERS: PCP Pediatrics Adolescent Medicine; Visit Provider Obstetrics & Gynecology
DX: Z34.80 Encounter for supervision of other normal pregnancy, unspecified trimester (principal)
CPT/HCPCS: 81000

== ENCOUNTER 2021-07-21 15:35 | Outpatient (CLI) | payer MEDICAID, SELFPAY ==
[2020-11-01 10:48] VITALS: BP 114/78; BMI 40.5
[2021-07-21] VITALS (11 sets, daily range): BP systolic 114–122; BP diastolic 64–78; PULSE 78–93; RESP 16–18; TEMP 36.3; BMI 48.7
[2021-07-21 17:47] LABS: Specific Gravity, Urine 1.015 (1.005-1.030); Urine Appearance Clear (CLEAR); Urine Color Yellow (Yellow); pH Urine 6 (5-7)
[2021-07-21 17:48] LABS: Add Urine Culture? No; Bilirubin Urine Neg (Negative); Blood Urine Neg (Negative); Glucose Urine UA Norm (Normal); Ketones Urine Negative (Negative); Leukocyte Esterase Urine Negative (Negative); Nitrate Urine Negative (Negative); Protein Urine Neg (Negative); RBC Urine 0-4 /hpf (0-2); Squamous Epithelial Cell Urine 0-4 /hpf (0-5); Urobilinogen Urine Neg (Negative); WBC Urine RARE /hpf (0-5)
== END 2021-07-21 18:15 | disposition home or self-care (01) ==
LOC: OPOB 15:38 → OBGYN 15:40
PROVIDERS: PCP Pediatrics Adolescent Medicine; Visit Provider Obstetrics & Gynecology
DX: O26.899 Other specified pregnancy related conditions, unspecified trimester (principal); Z3A.00 Weeks of gestation of pregnancy not specified; R10.9 Unspecified abdominal pain
CPT/HCPCS: 51702; 59025; 81001; 87086; 99211

== ENCOUNTER → 2021-08-03 08:28 | Outpatient (BNVA) | payer MEDICAID, SELFPAY ==
[2020-11-01 10:48] VITALS: BP 114/78; BMI 40.5
== END ==
PROVIDERS: PCP Pediatrics Adolescent Medicine; Visit Provider Obstetrics & Gynecology
DX: O99.211 Obesity complicating pregnancy, first trimester (principal); J45.21 Mild intermittent asthma with (acute) exacerbation; O99.340 Other mental disorders complicating pregnancy, unspecified trimester; F32.9 Major depressive disorder, single episode, unspecified; R41.83 Borderline intellectual functioning
CPT/HCPCS: 81000; 87081

== ENCOUNTER → 2021-08-04 13:00 | Outpatient (BNVA) | payer MEDICAID, SELFPAY ==
[2020-11-01 10:48] VITALS: BP 114/78; BMI 40.5
== END ==
PROVIDERS: PCP Pediatrics Adolescent Medicine; Visit Provider Psychiatry & Neurology Psychiatry
DX: F33.42 Major depressive disorder, recurrent, in full remission (principal); F43.10 Post-traumatic stress disorder, unspecified; R41.83 Borderline intellectual functioning
CPT/HCPCS: 99214

== ENCOUNTER → 2021-08-10 08:42 | Outpatient (BNVA) | payer MEDICAID, SELFPAY ==
[2020-11-01 10:48] VITALS: BP 114/78; BMI 40.5
== END ==
PROVIDERS: PCP Pediatrics Adolescent Medicine; Visit Provider Obstetrics & Gynecology
DX: O99.211 Obesity complicating pregnancy, first trimester (principal); J45.21 Mild intermittent asthma with (acute) exacerbation; O99.340 Other mental disorders complicating pregnancy, unspecified trimester; F32.9 Major depressive disorder, single episode, unspecified; R41.83 Borderline intellectual functioning
CPT/HCPCS: 81000

== ENCOUNTER 2021-08-11 12:29 | Outpatient (CLI) | payer MEDICAID, SELFPAY ==
[2020-11-01 10:48] VITALS: BP 114/78; BMI 40.5
[2021-08-11] VITALS (8 sets, daily range): BP systolic 94–131; BP diastolic 55–74; PULSE 62–75; RESP 17; TEMP 36.3; BMI 49.4
[2021-08-11 13:39] LABS: Nitrazine Paper, PH Inconclusive
[2021-08-11 13:43] LABS: Actim Prom Negative
--- NOTE | 2021-08-11 14:17 | PC.NURSE ---
education pt to come back to L&D if water brakes or a big gush is felt, contractions 5 min or less and increasing in strength. pt verbalized understanding.
== END 2021-08-11 14:20 | disposition home or self-care (01) ==
LOC: OPOB 12:33 → OBGYN 12:34
PROVIDERS: PCP Pediatrics Adolescent Medicine; Visit Provider Obstetrics & Gynecology
DX: O26.899 Other specified pregnancy related conditions, unspecified trimester (principal); Z3A.00 Weeks of gestation of pregnancy not specified; N89.8 Other specified noninflammatory disorders of vagina
CPT/HCPCS: 59025; 83986; 84112; 99211

== ENCOUNTER 2021-08-13 20:20 | Outpatient (CLI) | payer MEDICAID, SELFPAY ==
[2020-11-01 10:48] VITALS: BP 114/78; BMI 40.5
[2021-08-11 13:28] VITALS: RESP 17
[2021-08-13 20:20] VITALS: BMI 49.7
[2021-08-13 20:27] VITALS: BP 124/66; PULSE 90
[2021-08-13 20:28] VITALS: TEMP 36.4
[2021-08-13 20:38] VITALS: RESP 16
[2021-08-13 20:44] LABS: Nitrazine Paper, PH Negative
[2021-08-13 20:46] VITALS: BP 117/76; PULSE 71
[2021-08-13 20:54] LABS: Actim Prom Negative
[2021-08-13 21:00] VITALS: BP 115/74; PULSE 80
[2021-08-13 21:24] VITALS: BP 115/74; PULSE 80; RESP 16; TEMP 36.4
== END 2021-08-13 21:24 | disposition home or self-care (01) ==
LOC: OPOB 20:21 → OBGYN 20:22
PROVIDERS: PCP Pediatrics Adolescent Medicine; Visit Provider Obstetrics & Gynecology
DX: O26.899 Other specified pregnancy related conditions, unspecified trimester (principal); Z3A.00 Weeks of gestation of pregnancy not specified; R10.9 Unspecified abdominal pain; N89.8 Other specified noninflammatory disorders of vagina
CPT/HCPCS: 59025; 83986; 84112; 99211

== ENCOUNTER 2021-08-14 12:20 | Outpatient (CLI) | payer MEDICAID, SELFPAY ==
[2020-11-01 10:48] VITALS: BP 114/78; BMI 40.5
[2021-08-14] VITALS (9 sets, daily range): BP systolic 115–136; BP diastolic 55–83; PULSE 67–84; RESP 18; TEMP 35.9; BMI 49.4
--- NOTE | 2021-08-14 17:30 | PC.NURSE ---
Nurse called lab at this time to verify 2nd Actim Prom had been received. Lab stated it was received and running it right now.
[2021-08-14 17:39] LABS: Actim Prom Negative
== END 2021-08-14 18:00 | disposition home or self-care (01) ==
LOC: OPOB 12:22 → OBGYN 12:29
PROVIDERS: PCP Pediatrics Adolescent Medicine; Visit Provider Obstetrics & Gynecology
DX: O26.899 Other specified pregnancy related conditions, unspecified trimester (principal); Z3A.00 Weeks of gestation of pregnancy not specified; R10.9 Unspecified abdominal pain
CPT/HCPCS: 59025; 84112; 99211

== ENCOUNTER → 2021-08-17 09:11 | Outpatient (BNVA) | payer MEDICAID, SELFPAY ==
[2020-11-01 10:48] VITALS: BP 114/78; BMI 40.5
== END ==
PROVIDERS: PCP Pediatrics Adolescent Medicine; Visit Provider Obstetrics & Gynecology
DX: O99.211 Obesity complicating pregnancy, first trimester (principal); J45.21 Mild intermittent asthma with (acute) exacerbation; O99.340 Other mental disorders complicating pregnancy, unspecified trimester; F32.9 Major depressive disorder, single episode, unspecified; R41.83 Borderline intellectual functioning
CPT/HCPCS: 81000

== ENCOUNTER 2021-08-18 15:30 | Outpatient (CLI) | payer MEDICAID, SELFPAY ==
[2020-11-01 10:48] VITALS: BP 114/78; BMI 40.5
[2021-08-18] VITALS (13 sets, daily range): BP systolic 112–145; BP diastolic 66–94; PULSE 61–76; RESP 17; BMI 49.9
[2021-08-18 16:21] LABS: Add Urine Microscopic? NO; Charge for UA Resulting for Rev
[2021-08-18 17:22] LABS: Bilirubin Urine 1+ (Negative); Blood Urine Neg (Negative); Glucose Urine UA Norm (Normal); Ketones Urine Negative (Negative); Leukocyte Esterase Urine Negative (Negative); Nitrate Urine Negative (Negative); Protein Urine Neg (Negative); Urine Appearance Clear (CLEAR); Urine Color Amber (Yellow); Urobilinogen Urine 4 mg/dL (Negative); pH Urine 6 (5-7)
== END 2021-08-18 18:35 | disposition home or self-care (01) ==
LOC: OPOB 15:37 → OBGYN 15:40
PROVIDERS: PCP Pediatrics Adolescent Medicine; Visit Provider Obstetrics & Gynecology
DX: O26.899 Other specified pregnancy related conditions, unspecified trimester (principal); Z3A.00 Weeks of gestation of pregnancy not specified; R10.9 Unspecified abdominal pain
CPT/HCPCS: 59025; 81003; 99211

== ENCOUNTER 2021-08-22 11:55 | Inpatient (IN) | payer MEDICAID, SELFPAY ==
[2020-11-01 10:48] VITALS: BP 114/78; BMI 40.5
[2021-08-22] VITALS (12 sets, daily range): BP systolic 110–137; BP diastolic 59–87; PULSE 68–94; RESP 16–20; TEMP 36.7; BMI 50.7
[2021-08-22] MEDS: miSOPROStol 100 mcg tablet 25 MCG VAGINAL ×3 (13:23→22:59)
[2021-08-22 13:58] LABS: Basophils % 0.2 %; Eosinophils % 0.2 %; Hemoglobin 11.6 g/dL (11.5-15.3); Lymphocytes % 17.1 %; Mean Corpuscular HGB Conc 33.1 g/dL (30.0-36.0); Mean Corpuscular Hemoglobin 31.3 pg (28.0-34.0); Mean Corpuscular Volume 94.3 fl (81-99); Mean Platelet Volume 11.5 fL (7.4-10.4); Monocytes # 0.5 10^3/uL (0.2-0.9); Monocytes % 8.4 %; Neutrophils # 4.32 10^3/uL (1.8-8.0); Neutrophils % 73.6 %; Nucleated Red Blood Cells % 0 %; Platelet Count 139 10^3/cmm (130-400); Red Blood Count 3.71 10^6/uL (4.1-5.3); Red Cell Distribution Width 13.5 % (12.1-15.1); White Blood Count 5.9 10^3/uL (4.5-13.0)
--- NOTE | 2021-08-22 18:31 | PM.OPHPUD ---
Labor & Delivery H&P Update Date of Procedure: August 22, 2021 Date H&P Performed: 08/17/21 H&P update information: I have reviewed H&P completed within last 30 days, I have examined patient prior to procedure and No changes to prior documentation Admission Diagnosis: at 39 weeks. Primary indication for procedure: The patient requested induction at term. Related Problem List Diagnoses (1) Supervision of normal : (2) Obesity affecting : (3) Depression affecting : (4) Borderline intellectual functioning:
[2021-08-23] VITALS (91 sets, daily range): BP systolic 99–147; BP diastolic 55–96; PULSE 64–100; RESP 18; O2SAT 98
[2021-08-23] MEDS: fentaNYL 50 mcg/mL INJ 2mL IVP (01:39)
[2021-08-23] MEDS: dextrose 5%-lactated ringers 1,000 ML 999 ML IV (01:45)
[2021-08-23] MEDS: lactated ringers 1,000 ML 999 ML IV (02:42)
--- NOTE | 2021-08-23 03:14 | ANES.PREANE2 ---
Pre-Anesthetic Assessment Height/Weight: Height 1.65 m Weight 138.346 kg Temp Pulse Resp BP Pulse Ox 98.0 F 92 18 113/61 98 08/22/21 12:49 08/23/21 03:07 08/23/21 01:39 08/23/21 03:07 08/23/21 03:04 Preop Diagnosis: Labor pain SMITA Was Beta Horace taken within 24 hours: N/A Was Clonidine taken within 24 hours: N/A Social No alcohol and No tobacco Exam alert, oriented x 3, clear to auscultation bilaterally and regular rate & rhythm Airway Submandibular: within normal limits Cervical ROM: within normal limits Mallampati: Class II Dentition: full History/ROS No significant history except as noted and No significant complaints Pulmonary Asthma CV/HEM None reported None reported Hepatic None reported GI None reported Metabolic Morbid Obesity [facility] [place] [facility] None reported Neuropsych PTSD Anesthetic Plan Anesthesia: Regional (specify below) Other: SMITA Risk of > 500 ml blood loss (7ml/kg in children): No Medications/Allergies Home Medications Medication Instructions Recorded Confirmed Last Taken Type 1 tab PO DAILY 01/21/21 08/17/21 08/22/21 11:00 History albuterol sulfate 90 mcg/actuation 2 inh INHALATION Q4H PRN #8.5 g 01/21/21 08/17/21 Unknown Rx aerosol inhaler fluticasone 100 mcg-salmeterol 50 1 inh INHALATION BID #60 ea 01/21/21 08/17/21 02/17/21 Rx mcg/dose blistr powdr for inhalation (Advair Diskus) ondansetron HCl 4 mg tablet 4 mg PO Q6H PRN #30 tab 05/03/21 08/17/21 Unknown Rx (Zofran) levothyroxine 50 mcg capsule 50 mcg PO DAILY #30 cap 06/15/21 08/17/21 08/22/21 06:00 Rx fluoxetine 20 mg capsule (Prozac) 20 mg PO DAILY #30 cap 06/28/21 08/17/21 08/22/21 11:00 Rx diphenhydramine HCl 25 mg capsule 25 mg PO Q6H PRN 08/17/21 08/22/21 08/21/21 20:00 History (Benadryl) Allergies Allergy/AdvReac Type Severity Reaction Status Date / Time No Known Allergies Allergy Verified 08/17/21 09:10 Current Medications Generic Name Dose Route Start Last Admin Trade Name Mickey PRN Reason Stop Dose Admin Fentanyl 25 - 100 mcg 08/23/21 01:29 08/23/21 01:39 Fentanyl 50 Mcg/Ml Inj 2ml IVP 25 mcg Q1H PRN Administration SEVERE PAIN Dextrose/Lactated Ringer's 1,000 mls @ 125 mls/hr 08/22/21 13:00 08/23/21 02:42 Dextrose 5%-Lactated Ringers IV Infused .Q8H SEBASTIEN Infusion Lactated Ringer's 1,000 mls @ 999 mls/hr 08/23/21 01:28 08/23/21 02:42 Lactated Ringers IV 999 mls/hr .Q1H1M PRN Administration See label comments Misoprostol 25 mcg 08/22/21 22:40 08/22/21 22:59 Misoprostol 100 Mcg Tablet VAGINAL 25 mcg ONCE PRN Administration LABOR INDUCTION PFS Anesthesia Medical History Abdominal pain in female Asthma has needed her rescue inhaler MDD (major depressive disorder), recurrent episode, mild managed by Dr. Martin at [facility] No pertinent past medical history neghx: htn,dm,thyroid,dvt/pe Oligomenorrhea Psychiatric care PTSD (post-traumatic stress disorder) Surgical History History of elbow surgery (~2011) L elbow Family History Father Diabetes Hypertension Grandfather , old age Diabetes Hypertension Denies family history of Colon cancer Ovarian cancer Heart disease Hypercholesteremia Breast cancer Uterine cancer Thyroid disease Stroke Social History Smoking and tobacco status: former smoker (vape) Second hand smoke exposure: No Alcohol intake: never Desire information about alcohol rehabilitation?: No Desire information about substance/drug rehabilitation?: No Female Reproductive History Date of last menstrual period: 11/06/20 : 1 Para: 0 Spontaneous abortions: No Data Anesthesia : 08/22/21 13:35 Short CBC 08/22/21 Range/Units 13:35 WBC 5.9 (4.5-13.0) 10^3/uL Hgb 11.6 (11.5-15.3) g/dL Hct 35.0 L (37.0-47.0) % MCV 94.3 (81-99) fl Plt Count 139 (130-400) 10^3/cmm Neut % (Auto) 73.6 % Neut # (Auto) 4.32 (1.8-8.0) 10^3/uL Cardiac Studies: No Data to Display
--- NOTE | 2021-08-23 03:17 | P.ANES_ITS ---
Anesthesia Procedures Procedure/Date: 08/23/21 Epidural: Time Out Performed: Yes Consents Signed: Procedure Consent Consent: requested by attending/covering physician and from patient Lumbar Level: L3-L4 Epidural position: sitting Epidural procedure: sterile prep of area, 1% lidocaine to numb the area, 18 g needle, neg for paresthesia, test d ose given, 1.5% xylocaine 1:200k epi (5cc), 0.2% Ropivacaine bolus ml (5cc with Fentanyl 100mcg), no systemic response, sterile dressing applied, L.U.D. no apparent complications and 0.2% Ropiavacaine @ mls/hr (13cc/hour. JAQUELINE at 8cm. cath placed 2.5cm into space. Pt tolerated well.)
[2021-08-23] MEDS: dextrose 5%-lactated ringers 1,000 ML 125 ML IV ×2 (05:51→15:52)
[2021-08-23] MEDS: miSOPROStol 100 mcg tablet 25 MCG VAGINAL (06:11)
--- NOTE | 2021-08-23 11:24 | P.PN_ITS ---
SENIOR CONTROL SYSTEMS ENGINEER Subjective Subjective: Interval history: The patient has received 4 doses of cytotec. She has received an epidural for pain management. She had SROM at 0200 hours. Per nurse, there is a forebag present. status is overall very reassuring with accelerations and no decelerations. Labor: Station: -3 Amniotic Membrane Status: Bulging Monitor Mode: External Contraction Pattern: Irregular Status: Category II Vitals/I&O/Wt Last Vital Signs Temp 98.0 F 08/22/21 12:49 Pulse 77 08/23/21 11:07 Resp 18 08/23/21 01:39 BP 142/87 08/23/21 11:07 Pulse Ox 98 08/23/21 03:04 08/22/21 08/23/21 08/23/21 22:59 06:59 14:59 Intake Total 600 / 600 2000.0 / 2600.0 Balance 600 / 600 2000.0 / 2600.0 Weight last 48 hrs Weight 305 lb Physical Exam Narrative: no concerns except that she is a little sleepy. Const: COMMON NORMALS: no acute distress, patient oriented x3, alert and well nourished GENERAL APPEARANCE: cooperative, comfortable, well kempt and well developed ORIENTATION/CONSCIOUSNESS: Yes awake, Yes oriented to person, Yes oriented to place and Yes oriented to time Resp: COMMON NORMALS: normal respiratory effort EFFORT & INSPECTION: Yes able to speak in complete sentences GI: COMMON NORMALS: Soft to palpation and non-tender PALPATION: Yes Soft to palpation : MANUAL OB EXAM: dilated 3 cm, effaced fully and station -2 AMNIOTIC FLUID: clear OTHER: AROM forebag, clear Neuro: COMMON NORMALS: patient oriented x3 SENSORIUM/ORIENTATION: Yes alert, Yes oriented to person, Yes oriented to place and Yes oriented to time Psych: APPEARANCE: Yes well kempt Urinary Catheter Management: Ac Latex: Cath Placed During This Visit: yes Reason for Continuing Indwelling Catheter: Other Urinary Catheter Date of Insertion: 08/23/21 Urinary Catheter Time of Insertion: 04:00 Data : 08/22/21 13:35 A&P Assessment and plan (1) Supervision of normal : start pitocin for induction anticipate Status: Acute Qualifiers: Normal : normal first Trimester: first trimester Qualified Code(s): Z34.01 - Encounter for supervision of normal first , first trimester Attestations Medical Necessity Statement*: The patient is a labor induction. she will be here two midnights. Coding Level of Care Code Acute Catheterization Laboratory Technician for Leonides Okeefe Diagnoses Supervision of normal Z34.01 Normal : normal first Trimester: first trimester
[2021-08-23] MEDS: levothyroxine 50 mcg Tablet PO (11:42)
[2021-08-23] MEDS: oxytocin 30 UNIT/500 ML BAG IV (11:43)
--- NOTE | 2021-08-23 15:51 | ANES.PROC ---
Anesthesia Procedures Procedure/Date: 08/23/21 Procedure Narrative: Patient epidural assessed. Patient complains of pressure in perineal area. The patient was educated on the effectiveness of epidurals on Pain vs. pressure. 100mcg fentanyl given per epidural. patient admits to decreased pain. Report to OB RN
--- NOTE | 2021-08-23 16:46 | PC.NURSE ---
this nurse changed NOVII pad, redness noted from previous NOVII pad.
[2021-08-23] MEDS: lidocaine 2% INJ 20 mL INJECTION (18:00)
--- NOTE | 2021-08-23 18:35 | P.PCNOB_ITS ---
Delivery Note: Date of delivery: August 23, 2021 Pre-delivery diagnoses: Term Post-delivery diagnoses: Term delivered Procedure: Spontaneous vaginal delivery. Delivering Physician: Sae Lozano MD Estimated blood loss (mL): 300 Findings: Male infant Apgars 8/9, weight 4000 g Delivery: The patient was noted to be complete and pushing, so was placed in the dorsal lithotomy position, prepped and draped in the usual sterile fashion for a vaginal delivery. Pt. Noted to have epidural anesthesia. At 1740 the patient delivered a viable term male weighing 4000g with scores of 8 and 9 at one and five minutes, respectively. The vertex was delivered spontaneously over intact perineum. The patient was asked to push and the head delivered spontaneously in the ARIEL position, over an intact perineum. A nuchal cord was checked and 1 noted, and relieved/delivered through around head as necessary. The anterior shoulder delivered easily and the posterior shoulder followed. The remainder of the infant was easily delivered and the oropharynx and nasopharynx was bulb suctioned. The infant was noted to have spontaneous cry and spontaneous movement of all four extremities. The cord was clamped x 2 and cut and noted to have 2 arteries and one vein. The infant was passed to the mother's abdomen where nursing personnel were in attendance. Cord blood sample was then obtained. The placenta delivered intact spontaneously and the uterus was explored. 20 units of Pitocin was placed in the IV bag to firm the uterus. Examination of the cervix and vaginal vault did not reveal any lacerations. A vaginal pack was then placed. Examination of the perineum showed a second-degree laceration. The laceration was repaired with 3-0 Vicryl in the normal fashion in a running non locking fashion to reapproximate the laceration in layers. The vaginal pack was then removed. The patient tolerated this procedure well, and recovered in L&D with her in their LDR room. All sponge and needle counts were correct. History History History 1 Term 0 Miscarriages/Ectopic 0 0 Living Children 0 A&P Assessment and plan (1) Term delivered: Status: Acute Coding Level of Care Code Acute Research Engineer Marine Equipment for Chg Fwd Diagnoses Term delivered O80
[2021-08-23] MEDS: benzocaine-menthol 78 gm Canister 1 SPRAY TOPICAL (21:52)
[2021-08-23] MEDS: ibuprofen 800 mg tablet PO (21:52)
[2021-08-24] VITALS (21 sets, daily range): BP systolic 97–142; BP diastolic 55–83; PULSE 66–100; RESP 16; TEMP 36.4–36.9
[2021-08-24 06:42] LABS: Hematocrit 31.9 % (37.0-47.0); Hemoglobin 10.2 g/dL (11.5-15.3); Mean Corpuscular Hemoglobin 31.6 pg (28.0-34.0); Mean Corpuscular Volume 98.8 fl (81-99); Platelet Count 119 10^3/cmm (130-400); Red Blood Count 3.23 10^6/uL (4.1-5.3); Red Cell Distribution Width 13.8 % (12.1-15.1); White Blood Count 10.8 10^3/uL (4.5-13.0)
[2021-08-24] MEDS: levothyroxine 50 mcg Tablet PO (10:11)
[2021-08-24] MEDS: docusate sodium 100 mg Capsule PO (10:12)
[2021-08-24] MEDS: ibuprofen 800 mg tablet PO ×2 (10:12→16:24)
[2021-08-24] MEDS: prenatal vitamin Capsule 1 CAP PO (10:13)
[2021-08-24] MEDS: fluoxetine 20 mg Capsule PO (16:24)
--- NOTE | 2021-08-24 17:03 | P.DS_ITS ---
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 Date of Admission: 08/22/21 11:55 Date of Discharge: 08/24/21 Attending Provider at Admission: Ximena Pineda MD Attending Provider at Discharge: Sae Lozano MD Primary Care Provider: Lacey Mcelroy MD Diagnoses at Discharge Discharge Diagnosis (1) Supervision of normal : Status: Acute Qualifiers: Normal : normal first Trimester: third trimester Qualified Code(s): Z34.03 - Encounter for supervision of normal first , third trimester Reason for Visit Reason for Visit: induction Information Peripartum Data: Delivery Method: Vaginal Physical Exam Urinary Catheter Management: Ac Latex: Cath Placed During This Visit: yes, but has since been removed by the nurse Reason for Continuing Indwelling Catheter: Accurate Measurement of Urinary Output in Critically Ill Patients Urinary Catheter Date of Insertion: 08/23/21 Urinary Catheter Time of Insertion: 04:00 Date Urinary Catheter Removed: 08/23/21 Time Urinary Catheter Discontinued: 17:22 History History History 1 Term 0 Miscarriages/Ectopic 0 0 Living Children 0 Discharge Data Studies Completed and Pending Laboratory Results WBC 10.8 10^3/uL (4.5-13.0) 08/24/21 06:10 RBC 3.23 10^6/uL (4.1-5.3) L 08/24/21 06:10 Hgb 10.2 g/dL (11.5-15.3) L 08/24/21 06:10 Hct 31.9 % (37.0-47.0) L 08/24/21 06:10 MCV 98.8 fl (81-99) 08/24/21 06:10 MCH 31.6 pg (28.0-34.0) 08/24/21 06:10 MCHC 32.0 g/dL (30.0-36.0) 08/24/21 06:10 RDW 13.8 % (12.1-15.1) 08/24/21 06:10 Plt Count 119 10^3/cmm (130-400) L 08/24/21 06:10 MPV 12.0 fL (7.4-10.4) H 08/24/21 06:10 Neut % (Auto) 73.6 % 08/22/21 13:35 Lymph % (Auto) 17.1 % 08/22/21 13:35 [place] % (Auto) 8.4 % 08/22/21 13:35 Eos % (Auto) 0.2 % 08/22/21 13:35 Baso % (Auto) 0.2 % 08/22/21 13:35 Neut # (Auto) 4.32 10^3/uL (1.8-8.0) 08/22/21 13:35 Lymph # (Auto) 1.0 10^3/uL (1.5-6.5) L 08/22/21 13:35 [place] # (Auto) 0.5 10^3/uL (0.2-0.9) 08/22/21 13:35 Eos # (Auto) 0.0 10^3/uL (0.0-0.8) 08/22/21 13:35 Baso # (Auto) 0.0 10^3/uL (0.0-0.1) 08/22/21 13:35 Nucleated RBC % (auto) 0 % 08/22/21 13:35 Nucleated RBCs # 0.0 /100WBC 08/22/21 13:35 Vitals Last Vital Signs Temp 98.5 F 08/24/21 16:00 Pulse 82 08/24/21 16:00 Resp 16 08/24/21 10:30 BP 140/75 08/24/21 16:00 Pulse Ox 98 08/23/21 03:04 Discharge Plan Discharge Patient Disposition: Home Condition: Stable Prescriptions: No Action diphenhydramine HCl [Benadryl] 25 mg capsule 25 mg PO Q6H PRN (Reason: Sedation) 0RF fluoxetine [Prozac] 20 mg capsule 20 mg PO DAILY Qty: 30 5RF ondansetron HCl [Zofran] 4 mg tablet 4 mg PO Q6H PRN (Reason: nausea and vomiting) Qty: 30 2RF levothyroxine 50 mcg capsule 50 mcg PO DAILY Qty: 30 6RF levofloxacin 500 mg tablet 500 mg PO DAILY Qty: 10 0RF 1 tab PO DAILY 0RF fluticasone propion-salmeterol [Advair Diskus] 100-50 mcg/dose blister with device 1 inh inhalation BID Qty: 60 0RF albuterol sulfate 90 mcg/actuation HFA aerosol inhaler 2 inh inhalation Q4H PRN (Reason: shortness of breath or wheezing) Qty: 8.5 0RF Patient Instructions: Opioid Safety Coding Level of Care Code Acute Care Transport Nurse for Leonides Fwd Diagnoses Supervision of normal Z34.03 Normal : normal first Trimester: third trimester
--- NOTE | 2021-08-24 17:06 | P.DS_ITS ---
Discharge Providers MULTI PURPOSE MACHINE OPERATOR Date of Admission: 08/22/21 11:55 Date of Discharge: 08/24/21 Attending Provider at Admission: Ximena Pineda MD Attending Provider at Discharge: Sae Lozano MD Primary Care Provider: Lacey Mcelroy MD Diagnoses at Discharge Discharge Diagnosis (1) Term delivered: Status: Acute Reason for Visit Reason for Visit: induction Hospital Course Hospital Course 21-year-old G1 with unknown LMP, established patient, with RITESH 08/29/2021 based on 6-week sonogram admitted at 39 weeks for induction. She progressed to have a spontaneous vaginal delivery without complications. She delivered a male , Apgars 8/9 and with a birthweight of 4000 g. Postop observation uneventfully. She is afebrile and hemodynamically stable day 1. Tolerating diet well. Ambulating without difficulty. Information Peripartum Data: Delivery Method: Vaginal Physical Exam Narrative: GA; alert and oriented x 3 HEENT: normal Breasts: engorged Nipples - skin intact Lungs; clear to auscultation Heart: regular rhythm, no murmurs. Abd: Appropriately tender. BS+. Uterine fundus below umbilicus. No Fundal Tenderness. Perineum: normal lochia. Extremities: no edema, no cyanosis, no tenderness. Urinary Catheter Management: Ac Latex: Cath Placed During This Visit: yes, but has since been removed by the nurse Reason for Continuing Indwelling Catheter: Accurate Measurement of Urinary Output in Critically Ill Patients Urinary Catheter Date of Insertion: 08/23/21 Urinary Catheter Time of Insertion: 04:00 Date Urinary Catheter Removed: 08/23/21 Time Urinary Catheter Discontinued: 17:22 History History History 1 Term 0 Miscarriages/Ectopic 0 0 Living Children 0 Discharge Data Studies Completed and Pending Laboratory Results WBC 10.8 10^3/uL (4.5-13.0) 08/24/21 06:10 RBC 3.23 10^6/uL (4.1-5.3) L 08/24/21 06:10 Hgb 10.2 g/dL (11.5-15.3) L 08/24/21 06:10 Hct 31.9 % (37.0-47.0) L 08/24/21 06:10 MCV 98.8 fl (81-99) 08/24/21 06:10 MCH 31.6 pg (28.0-34.0) 08/24/21 06:10 MCHC 32.0 g/dL (30.0-36.0) 08/24/21 06:10 RDW 13.8 % (12.1-15.1) 08/24/21 06:10 Plt Count 119 10^3/cmm (130-400) L 08/24/21 06:10 MPV 12.0 fL (7.4-10.4) H 08/24/21 06:10 Neut % (Auto) 73.6 % 08/22/21 13:35 Lymph % (Auto) 17.1 % 08/22/21 13:35 [place] % (Auto) 8.4 % 08/22/21 13:35 Eos % (Auto) 0.2 % 08/22/21 13:35 Baso % (Auto) 0.2 % 08/22/21 13:35 Neut # (Auto) 4.32 10^3/uL (1.8-8.0) 08/22/21 13:35 Lymph # (Auto) 1.0 10^3/uL (1.5-6.5) L 08/22/21 13:35 [place] # (Auto) 0.5 10^3/uL (0.2-0.9) 08/22/21 13:35 Eos # (Auto) 0.0 10^3/uL (0.0-0.8) 08/22/21 13:35 Baso # (Auto) 0.0 10^3/uL (0.0-0.1) 08/22/21 13:35 Nucleated RBC % (auto) 0 % 08/22/21 13:35 Nucleated RBCs # 0.0 /100WBC 08/22/21 13:35 Vitals Last Vital Signs Temp 98.5 F 08/24/21 16:00 Pulse 82 08/24/21 16:00 Resp 16 08/24/21 10:30 BP 140/75 08/24/21 16:00 Pulse Ox 98 08/23/21 03:04 Discharge Plan Discharge Patient Disposition: Home Condition: Stable Prescriptions: New acetaminophen 325 mg capsule 325 mg PO Q4H PRN (Reason: fever or pain) Qty: 60 0RF docusate sodium [Colace] 100 mg capsule 100 mg PO BID Qty: 60 0RF ferrous sulfate [Iron (ferrous sulfate)] 325 mg (65 mg iron) tablet 325 mg PO BID Qty: 60 0RF Continued diphenhydramine HCl [Benadryl] 25 mg capsule 25 mg PO Q6H PRN (Reason: Sedation) 0RF fluoxetine [Prozac] 20 mg capsule 20 mg PO DAILY Qty: 30 5RF ondansetron HCl [Zofran] 4 mg tablet 4 mg PO Q6H PRN (Reason: nausea and vomiting) Qty: 30 2RF levothyroxine 50 mcg capsule 50 mcg PO DAILY Qty: 30 6RF levofloxacin 500 mg tablet 500 mg PO DAILY Qty: 10 0RF 1 tab PO DAILY 0RF fluticasone propion-salmeterol [Advair Diskus] 100-50 mcg/dose blister with device 1 inh inhalation BID Qty: 60 0RF albuterol sulfate 90 mcg/actuation HFA aerosol inhaler 2 inh inhalation Q4H PRN (Reason: shortness of breath or wheezing) Qty: 8.5 0RF Discharge Orders: Discharge Order (Routine); Ordered 08/24/21 Ordered By: Sae Lozano Referrals: Sae Lozano MD [Physician] - 6 Weeks Discharge Diet: Usual diet Discharge Activity: Limit activity as instructed Patient Instructions: Opioid Safety, Bleeding (GEN), Vaginal Delivery (GEN), Your 's Appearance (GEN), Caring for Your Baby (GEN) Activity Restrictions/Additional Instructions: 1. Please call [facility] on next working day to make your post appointment in 6 weeks. 2. Please stay home until you come back to the clinic on first post-operative check up. 3. Please follow instructions on your medications CAREFULLY. 4. If you have abdominal incision, do not cover it unless dressing is necessary because of drainage. OK to shower, but avoid bath. Leave steri-strips until they fall off. If they are still on one week after surgery, you may remove them. 5. If you had vaginal surgery or vaginal repair, Dr. Lozano may instruct you to take SITZ bath. 6. Yellow, blood tinged odorous vaginal discharge is usually normal after hysterectomy or vaginal surgeries. 7. No sexual intercourse, tampons, or douches until you are completely released from the post-operative care. 8. Avoid constipation by eating right and maybe using some Metamucil or Milk of Magnesia. 9. All prescription refills are given during the working hours. Please do no wait till it runs out. Call the clinic at [phone] before your medication runs out. The clinic will get in touch with your doctor to prescribe medications if necessary. 10. Please remain within 40 mile radius from our hospital because emergencies do happen now and then during the post-operative period. 11. If you have stairs at home, take one step at a time slowly and minimize the number of trips. It helps to stay in one floor for the next few days. No lifting except what you can lift by one hand until you are released from the post-operative care. 12. Driving is discouraged until you are well healed. It may be 3-4 weeks before you feel strong enough to drive. You should be able to turn and look through the rear window without pain and you should be able to push the brake pedal very hard without pain before you drive. No fast rules, but SAFETY should be your primary concern. DO NOT drive if you are on sedating medications such as narcotics. 13. Call the clinic (during working hours) to make urgent appointment or go to the Emergency room, if any of the following occurs: i. Vaginal bleeding becomes heavy, more than a period. ii. Incision becomes red and sore, or drains pus. iii. Your temperature is over 100.4 or you have chill. iv. IV site becomes red and swollen (a little ``knot?? is usually OK) v. Persistent nausea and vomiting vi. Persistent constipation or diarrhea vii. Rash or allergic reaction to medications. Discharge Attestations MULTI PURPOSE MACHINE OPERATOR Time Spent in Discharge Care*: greater than 30 min Coding Level of Care Code Acute Memorial Counselor for Chg Fwd Diagnoses Term delivered O80
--- NOTE | 2021-08-24 19:05 | ANE.PACU2 ---
Inpatient post-anesthesia follow up: Airway intact: Yes Vital signs: Temperature 98.5 F Pulse Rate 82 Respiratory Rate 16 Blood Pressure 140/75 Pulse Oximetry 98 Oxygen Delivery Me thod Room Air Oxygen Flow Rate Fraction of Inspir ed Oxygen Hydration adequate: Yes Nausea and vomiting: No Pain level: 1 Mental status: Baseline
== END 2021-08-24 20:30 | disposition home or self-care (01) | DRG 807 ==
PROVIDERS: Obstetrics & Gynecology; Admitting Provider Obstetrics & Gynecology; PCP Pediatrics Adolescent Medicine; Visit Provider Obstetrics & Gynecology
DX: O99.344 Other mental disorders complicating childbirth (principal); Z37.0 Single live birth; O99.52 Diseases of the respiratory system complicating childbirth; O99.214 Obesity complicating childbirth; O70.1 Second degree perineal laceration during delivery; Z3A.39 39 weeks gestation of pregnancy; R41.83 Borderline intellectual functioning; J45.20 Mild intermittent asthma, uncomplicated; F32.A Depression, unspecified
CPT/HCPCS: 36415; 51702; 59025; 59409; 85025; 85027; 99211; J2795; J3010

== ENCOUNTER → 2021-09-01 09:51 | Outpatient (BNVA) | payer MEDICAID, SELFPAY ==
[2020-11-01 10:48] VITALS: BP 114/78; BMI 40.5
== END ==
PROVIDERS: PCP Pediatrics Adolescent Medicine; Visit Provider Psychiatry & Neurology Psychiatry
DX: F33.42 Major depressive disorder, recurrent, in full remission (principal); F43.10 Post-traumatic stress disorder, unspecified; R41.83 Borderline intellectual functioning
CPT/HCPCS: 99214

== ENCOUNTER → 2021-10-06 10:20 | Outpatient (BNVA) | payer OTHER, SELFPAY ==
[2020-11-01 10:48] VITALS: BP 114/78; BMI 40.5
== END ==
PROVIDERS: PCP Pediatrics Adolescent Medicine; Visit Provider Psychiatry & Neurology Psychiatry
DX: F33.0 Major depressive disorder, recurrent, mild (principal); R41.83 Borderline intellectual functioning; F43.10 Post-traumatic stress disorder, unspecified
CPT/HCPCS: 99214

== ENCOUNTER → 2021-10-13 13:30 | Outpatient (BNVA) | payer OTHER, SELFPAY ==
[2020-11-01 10:48] VITALS: BP 114/78; BMI 40.5
== END ==
PROVIDERS: PCP Pediatrics Adolescent Medicine; Visit Provider Obstetrics & Gynecology
DX: Z30.9 Encounter for contraceptive management, unspecified (principal)
CPT/HCPCS: 81025

== ENCOUNTER 2022-03-04 16:04 | Emergency (ER) | payer MEDICAID, SELFPAY ==
[2020-11-01 10:48] VITALS: BP 114/78; BMI 40.5
[2022-03-04 16:11] VITALS: BP 124/81; PULSE 82; RESP 18; TEMP 37.1; O2SAT 99; BMI 43.9
[2022-03-04 16:54] LABS: Add Urine Microscopic? NO; Charge for UA Resulting for Rev
--- NOTE | 2022-03-04 17:00 | ED_ITS ---
HPI - Back Pain/Injury General: Chief Complaint: Back Pain/Injury Stated Complaint: Lower back pain Time Seen by Provider: 03/04/22 16:55 History of Present Illness: 21-year-old female comes in today for complaints of low back pain. Patient reports pain started in the last 2 to 3 days. Patient also reported some dysuria at times. Patient appears nontoxic. Patient denies recent sexual intercourse. Patient also expressed some concerns about a rash to the left hand. Associated symptoms: Reports dysuria (Described more as discomfort); Deny abdominal pain or fever(s) Review of Systems Const: Denies: fever(s) Resp: Denies: dyspnea GI: Denies: abdominal pain : Reports: dysuria (Described more as discomfort) Musc: Reports: back pain PFSH ED PFSH: Medical History Abdominal pain in female Asthma has needed her rescue inhaler MDD (major depressive disorder), recurrent episode, mild managed by Dr. Martin at [facility] No pertinent past medical history neghx: htn,dm,thyroid,dvt/pe Oligomenorrhea Psychiatric care PTSD (post-traumatic stress disorder) Surgical History History of elbow surgery (~2011) L elbow Family History Father Diabetes Hypertension Grandfather , old age Diabetes Hypertension Denies family history of Colon cancer Ovarian cancer Heart disease Hypercholesteremia Breast cancer Uterine cancer Thyroid disease Stroke Social History Smoking and tobacco status: never smoked Second hand smoke exposure: Yes Smoking risk assessment/counseling performed?: No Alcohol intake: never Desire information about alcohol rehabilitation?: No Counseling given: No Female Reproductive History: Date of last menstrual period: 11/06/20 Para: 0 Spontaneous abortions: No Physical Exam Const: COMMON NORMALS: alert HENMT: COMMON NORMALS: normocephalic HEAD & SCALP: normocephalic Neck/C-Spine: COMMON NORMALS: full ROM Resp: COMMON NORMALS: normal respiratory effort Cardio: COMMON NORMALS: regular rate RATE: regular rate GI: COMMON NORMALS: non-tender : COMMON NORMALS: Yes no CVA tenderness BLADDER/KIDNEY EXAM: Yes no CVA tenderness Back/Pelvis: COMMON NORMALS: no CVA tenderness THORACIC SPINE/UPPER BACK: Yes paraspinal muscle tenderness LUMBAR SPINE/LOWER BACK: Yes paraspinal mus hamzah tenderness Neuro: SENSORIUM/ORIENTATION: Yes alert Skin: COMMON NORMALS: no rashes or lesions noted GENERAL SKIN EXAM: no rashes or lesions noted Course Vital Signs: Vital signs: Vital Signs Temperature 98.7 F 03/04/22 16:11 Pulse Rate 82 03/04/22 16:11 Respiratory Rate 18 03/04/22 16:11 Blood Pressure 124/81 03/04/22 16:11 Pulse Oximetry 99 03/04/22 16:11 Oxygen Delivery Me thod 03/04/22 16:11 MDM - Back Pain/Injury Medical Decision Making 21-year-old female comes in today with complaints of low back pain. Patient was concerned it may be related to a urinary tract infection because she has had some mild discomfort with urination. Patient also expresses concerns about rash to the second and third fingers on the left hand, patient's dominant hand. Exam notes some paraspinous muscle tenderness of the low back. No direct spine tenderness. Abdomen soft nontender. Skin is warm and dry. Vital signs are normal. Patient also has a dry cracked rash to the second and third digits of the left hand. Differential diagnosis for back pain includes urinary tract infection, musculoskeletal pain, cystitis, vaginitis. Urine was sent for gonorrhea chlamydia panel, urinalysis was normal. The patient's pain probably is more related to musculoskeletal back pain. Patient's rash on her fingers and it is either a hand dermatitis secondary to contact dermatitis versus dyshid rotic eczema versus atopic dermatitis. Reviewed exam with patient with recommendations for treatment and follow-up. Patient reported understanding agreed to plan. Labs Laboratory Results HCG, Qual Negative (Negative) 03/04/22 16:39 Urine Color Yellow (Yellow) 03/04/22 16:39 Urine Appearance Clear (CLEAR) 03/04/22 16:39 Urine pH 5 (5-7) 03/04/22 16:39 Ur Specific [place] 1.030 (1.005-1.030) 03/04/22 16:39 Urine Protein Neg (Negative) 03/04/22 16:39 Urine Glucose (UA) Norm (Normal) 03/04/22 16:39 Urine Ketones Negative (Negative) 03/04/22 16:39 Urine Blood Neg (Negative) 03/04/22 16:39 Urine Nitrate Negative (Negative) 03/04/22 16:39 Urine Bilirubin Neg (Negative) 03/04/22 16:39 Urine Urobilinogen Norm mg/dL (Negative) 03/04/22 16:39 Ur Leukocyte Esterase Negative (Negative) 03/04/22 16:39 Discharge Plan Discharge Patient Disposition: Home Clinical Impression: Hand dermatitis, Dysuria Low back pain Qualifiers: Chronicity: acute Back pain laterality: midline Sciatica presence: without sciatica Qualified Code(s): M54.50 - Low back pain, unspecified Condition: Stable Prescriptions: New phenazopyridine 100 mg tablet 100 mg PO TID Qty: 9 0RF diclofenac sodium 75 mg tablet,delayed release (DR/EC) 75 mg PO BID Qty: 20 0RF triamcinolone acetonide 0.1 % cream 1 applic topical BID Qty: 30 0RF No Action Nexplanon 68 mg implant subdermal sertraline [Zoloft] 100 mg tablet 100 mg PO DAILY Qty: 30 5RF albuterol sulfate 90 mcg/actuation HFA aerosol inhaler 2 inh inhalation Q4H PRN (Reason: shortness of breath or wheezing) Qty: 8.5 0RF acetaminophen 325 mg capsule 325 mg PO Q4H PRN (Reason: fever or pain) Qty: 60 0RF Discharge Orders: Discharge ED (Routine); Ordered 03/04/22 Ordered By: Rhett Lott Referrals: Lacey Mcelroy MD [Primary Care Provider] - Discharge Diet: Usual diet Discharge Activity: Increase activity as tolerated Patient Instructions: Back Pain (ED) Activity Restrictions/Additional Instructions: Drink plenty of water. Take diclofenac 1 tablet twice a day for the next 5 to 10 days as needed for back pain. Do not use diclofenac with ibuprofen. You can use acetaminophen for further pain relief. Use phenazopyridine 100 mg 3 times a day for the next 3 days for urinary discomfort. Use the triamcinolone cream twice a day to rash until clear. Follow-up with primary care in 3 days for recheck of urine. Return to ED for new concerns or worsening symptoms such as increased abdominal pain, fever greater than 100.4, or inability to hold fluids down. Coding Level of Care Code ED Java Solutions Architect for Leonides Okeefe
[2022-03-04 17:05] LABS: Bilirubin Urine Neg (Negative); Blood Urine Neg (Negative); Glucose Urine UA Norm (Normal); HCG Qualitative Urine. Negative (Negative); Ketones Urine Negative (Negative); Leukocyte Esterase Urine Negative (Negative); Nitrate Urine Negative (Negative); Protein Urine Neg (Negative); Urine Appearance Clear (CLEAR); Urine Color Yellow (Yellow); Urobilinogen Urine Norm (Negative); pH Urine 5 (5-7)
== END 2022-03-04 17:33 | disposition home or self-care (01) ==
PROVIDERS: Emergency Medicine; Emergency Provider Nurse Practitioner Family; PCP Pediatrics Adolescent Medicine
DX: M54.50 Low back pain, unspecified (principal); L30.9 Dermatitis, unspecified; R30.0 Dysuria; Z77.22 Contact with and (suspected) exposure to environmental tobacco smoke (acute) (chronic)
CPT/HCPCS: 81003; 81025; 87491; 87591; 99284

== ENCOUNTER 2023-01-23 16:49 | Inpatient (IN) | payer MEDICAID, SELFPAY ==
[2020-11-01 10:48] VITALS: BP 114/78; BMI 40.5
[2023-01-23 16:51] VITALS: BP 130/90; PULSE 84; RESP 18; TEMP 37.1; O2SAT 98; BMI 46.9
--- NOTE | 2023-01-23 16:53 | ECG_ITS ---
[facility] Test Date: 2023-01-23 Pat Name: Everette Luong Department: Room: Gender: Female Risk Adjustment Specialist: : 2000 Requested By: Easton Glover Order Number: [id number] Paulino MD: Frances Acharya M.D. Measurements Intervals [place] Rate: 63 P: 79 NH: 161 QRS: 8 QRSD: 104 T: 6 QT: 397 QTc: 408 Interpretive Statements SINUS RHYTHM LOW QRS VOLTAGE IN PRECORDIAL LEADS [QRS DEFLECTION < 1.0 mV IN CHEST LEADS] NONSPECIFIC T-WAVE ABNORMALITY Compared to ECG 12/20/2020 01:13:53 T-wave abnormality now present Sinus bradycardia no longer present Incomplete right bundle-branch block no longer present Electronically Signed On 01-24-2023 21:18:37 CDT by Frances Acharya M.D. [email or web address]
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
[2023-01-23 17:01] VITALS: BP 130/90; PULSE 84; RESP 18; O2SAT 98
[2023-01-23 17:24] LABS: HCG Qualitative Urine. Negative (Negative)
[2023-01-23 17:31] LABS: Amphetamines Screen Urine Negative (Negative); Barbiturates Screen Urine Negative (Negative); Benzodiazepines Screen Urine Positive (Negative); Cocaine Screen Urine Negative (Negative); Opiate Screen Urine Negative (Negative); PCP Screen Urine Negative (Negative); THC Screen Urine Negative (Negative)
[2023-01-23 17:35] LABS: Basophils % 0.3 %; Eosinophils # 0.1 10^3/uL (0.0-0.8); Eosinophils % 0.9 %; Hematocrit 40.3 % (36-47); Lymphocytes # 1.8 10^3/uL (0.8-4.8); Lymphocytes % 24.3 %; Mean Corpuscular HGB Conc 32.5 g/dL (30-55); Mean Corpuscular Volume 92.2 fl (85-98); Mean Platelet Volume 9.5 fL (7.4-10.4); Monocytes # 0.5 10^3/uL (0.2-0.9); Monocytes % 6.8 %; Neutrophils # 4.99 10^3/uL (1.8-7.7); Neutrophils % 67.4 %; Nucleated Red Blood Cells % 0 %; Platelet Count 219 10^3/cmm (157-399); Red Blood Count 4.37 10^6/uL (3.85-5.65); Red Cell Distribution Width 12.8 % (12.1-15.1)
[2023-01-23 17:47] LABS: SARS Covid-2 Antigen negative (Negative)
[2023-01-23 17:51] LABS: Alanine Aminotransferase 23 U/L (0-33); Albumin Level 4.4 g/dL (3.5-5.2); Alkaline Phosphatase 82 U/L (35-105); Anion Gap 14.6 (5-19); Aspartate Amino Transferase 20 U/L (0-32); Blood Urea Nitrogen 10 mg/dL (6-20); Calcium 8.5 mg/dL (8.5-10.5); Carbon Dioxide 26 mmol/L (22-29); Chloride 105 mmol/L (98-107); Globulin 2.8 g/dL (1.3-4.6); Glucose 74 mg/dL (65-115); Osmolality Calculated 292 mOsm/kg (285-295); Potassium 3.6 mmol/L (3.5-5.1); Sodium 142 mmol/L (136-145); Total Bilirubin 0.4 mg/dL (0.15-1.2); Total Protein 7.2 g/dL (6.6-8.7)
[2023-01-23 17:52] LABS: Acetaminophen < 5.0 ug/mL (10-30); Alcohol Level < 10 mg/dL (0-10); Salicylate < 0.3 mg/dL (3-10)
[2023-01-23 18:31] VITALS: BP 145/88; PULSE 76; RESP 16; TEMP 36.8; O2SAT 99
[2023-01-23 20:29] VITALS: BP 107/74; PULSE 76; RESP 16; TEMP 37; O2SAT 98
[2023-01-24 06:00] VITALS: BP 90/61; PULSE 69; RESP 18; TEMP 36.7; O2SAT 98
[2023-01-24] MEDS: fluoxetine 20 mg Capsule 40 MG PO (10:06)
[2023-01-24] MEDS: mupirocin oint 22 gm 1 APPLIC TOPICAL (10:07)
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
[2023-01-24 14:00] VITALS: BP 106/74; PULSE 80; RESP 16; TEMP 36.7; O2SAT 98
[2023-01-24 20:16] VITALS: BP 110/80; PULSE 92; RESP 20; TEMP 36.2; O2SAT 98
[2023-01-25 06:00] VITALS: BP 124/84; PULSE 93; RESP 18; TEMP 36.9; O2SAT 98
[2023-01-25] MEDS: buPROPion XL (24 HR) 150 mg Tablet PO (06:17)
[2023-01-25] MEDS: fluoxetine 20 mg Capsule 40 MG PO (08:12)
[2023-01-25] MEDS: mupirocin oint 22 gm 1 APPLIC TOPICAL (08:14)
[2023-01-25 14:00] VITALS: BP 119/83; PULSE 93; RESP 20; TEMP 36.9; O2SAT 100
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
[2023-01-25 15:12] VITALS: BP 119/83; PULSE 93; RESP 20; TEMP 36.9; O2SAT 100
== END 2023-01-25 16:13 | disposition home or self-care (01) | DRG 882 ==
LOC: ER 18:07 → NP 18:28
PROVIDERS: Admitting Provider Psychiatry & Neurology Psychiatry; Emergency Provider Emergency Medicine; PCP Pediatrics Adolescent Medicine; Visit Provider Psychiatry & Neurology Psychiatry
DX: F43.10 Post-traumatic stress disorder, unspecified (principal); R45.851 Suicidal ideations; F32.A Depression, unspecified; F17.210 Nicotine dependence, cigarettes, uncomplicated; Z62.810 Personal history of physical and sexual abuse in childhood; Z62.811 Personal history of psychological abuse in childhood; R41.83 Borderline intellectual functioning
CPT/HCPCS: 36415; 80053; 80306; 80307; 81025; 85025; 87426; 93005; 97150; 97165; 99238; 99285

== ENCOUNTER 2023-05-19 19:23 | Emergency (ER) | payer MEDICAID, SELFPAY ==
[2020-11-01 10:48] VITALS: BP 114/78; BMI 40.5
[2023-05-19 19:48] VITALS: BP 141/86; PULSE 93; RESP 16; TEMP 36.5; O2SAT 99; BMI 49.8
--- NOTE | 2023-05-19 20:01 | XRR_ITS ---
PROCEDURE INFORMATION: Exam: XR Right Hand Exam date and time: 05/19/2023 8:06 PM Age: 22 years old Clinical indication: Injury or trauma; Patient HX: Laceration to right posterior mid hand TECHNIQUE: Imaging protocol: Radiologic exam of the right hand. Views: 3 or more views. COMPARISON: No relevant prior studies available. FINDINGS: Bones/joints: Normal. Soft tissues: Dorsal soft tissue laceration over the proximal metacarpal shafts. XR/XR hand RT min 3V* [id number] IMPRESSION: Dorsal soft tissue laceration over the proximal metacarpal shafts.
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
[2023-05-19] MEDS: tetanus-dipt-pertussis 0.5 mL SDV IM (20:40)
[2023-05-19 21:28] VITALS: PULSE 90; RESP 16; O2SAT 97
== END 2023-05-19 21:27 | disposition home or self-care (01) ==
PROVIDERS: Emergency Provider Emergency Medicine; PCP Pediatrics Adolescent Medicine
DX: S61.411A Laceration without foreign body of right hand, initial encounter (principal); W22.09XA Striking against other stationary object, initial encounter; Z23 Encounter for immunization
CPT/HCPCS: 12002; 73130; 90471; 90715; 99283

== ENCOUNTER 2023-05-24 17:21 | Emergency (ER) | payer MEDICAID, SELFPAY ==
[2020-11-01 10:48] VITALS: BP 114/78; BMI 40.5
[2023-05-24 17:27] VITALS: BP 167/128; PULSE 111; RESP 20; TEMP 36.5; O2SAT 99; BMI 48.2
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
[2023-05-24 17:53] VITALS: BP 133/113; PULSE 122; RESP 28; O2SAT 100
--- NOTE | 2023-05-24 18:18 | PC.NURSE ---
3 mani placed by McTeer to the posterior head , pt tolerated well.
== END 2023-05-24 19:31 | disposition home or self-care (01) ==
PROVIDERS: Emergency Provider Nurse Practitioner
DX: S01.01XA Laceration without foreign body of scalp, initial encounter (principal); Y00.XXXA Assault by blunt object, initial encounter; Y07.410 Brother, perpetrator of maltreatment and neglect
CPT/HCPCS: 12001; 70450; 99284

== ENCOUNTER 2023-05-24 22:33 | Emergency (ER) | payer MEDICAID, SELFPAY ==
[2020-11-01 10:48] VITALS: BP 114/78; BMI 40.5
[2023-05-24 22:36] VITALS: BP 126/85; PULSE 82; RESP 18; TEMP 36.5; O2SAT 99; BMI 48.2
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
== END 2023-05-24 23:19 | disposition home or self-care (01) ==
PROVIDERS: Emergency Provider Nurse Practitioner
DX: S01.01XD Laceration without foreign body of scalp, subsequent encounter (principal); Y04.2XXD Assault by strike against or bumped into by another person, subsequent encounter
CPT/HCPCS: 12001; 99282

== ENCOUNTER → 2024-02-05 09:52 | Outpatient (BNVA) | payer MEDICAID, SELFPAY ==
[2020-11-01 10:48] VITALS: BP 114/78; BMI 40.5
== END ==
PROVIDERS: PCP Family Medicine; Visit Provider Nurse Practitioner Family
DX: M25.531 Pain in right wrist (principal)
CPT/HCPCS: 73110

== ENCOUNTER 2024-02-13 09:00 | Outpatient (CLI) | payer MEDICAID, SELFPAY ==
[2020-11-01 10:48] VITALS: BP 114/78; BMI 40.5
--- NOTE | 2024-02-13 09:08 | US_ITS ---
WS: [id number] ULTRASOUND BREAST BILATERAL TECHNIQUE: Ultrasound bilateral breast focused area of concern. CLINICAL INFORMATION: NIPPLE DISCHARGE COMPARISON: None. FINDINGS: RIGHT BREAST: Ultrasound subareolar RIGHT breast. Normal-appearing subareolar ducts. No cystic or jose id lesions. No suspicious findings. LEFT BREAST: Ultrasound subareolar LEFT breast. No suspicious findings. Normal-appearing subareolar d ucts. US/US breast BI complete [id number] IMPRESSION: BI-RADS 2 benign Follow-up: Annual screening mammography age 41
== END 2024-02-13 09:01 | disposition home or self-care (01) ==
PROVIDERS: PCP Family Medicine; Visit Provider Family Medicine
DX: N64.52 Nipple discharge (principal)
CPT/HCPCS: 76641

== ENCOUNTER 2024-05-08 19:36 | Emergency (ER) | payer OTHER, MEDICAID, SELFPAY ==
[2020-11-01 10:48] VITALS: BP 114/78; BMI 40.5
[2024-05-08 19:40] VITALS: PULSE 99; RESP 16; TEMP 36.9; O2SAT 95; BMI 50.2
--- NOTE | 2024-05-08 20:38 | XRR_ITS ---
PROCEDURE INFORMATION: Exam: XR Right Hip Exam date and time: 05/08/2024 8:45 PM Age: 23 years old Clinical indication: Injury or trauma; Blunt trauma (contusions or hematomas); Right; Patient HX: C/O worsening RT hip pain after falling in the shower this morning. TECHNIQUE: Imaging protocol: Radiologic exam of the right hip. Views: 1 view hip with pelvis when performed. COMPARISON: CT abdomen pelvis w con* [id number] 11/15/2020 11:39 PM FINDINGS: Bones/joints: No acute fracture or dislocation. Soft tissues: Unremarkable. XR/XR hip RT 2-3V wo/w pel* [id number] IMPRESSION: No acute fracture or dislocation.
--- NOTE | 2024-05-08 20:48 | W.ED.FALL ---
HPI - Fall General: Chief Complaint: Fall Stated Complaint: fell right side pain Time Seen by Provider: 05/08/24 20:38 History of Present Illness: 23-year-old female presents emergency room complaining of right side pain she slipped and fell she is getting out of shower this morning she was at home most of the day she has been able to ambulate she has some bruising presenting on the right lateral thigh and some right hip pain she thinks she may have passed out after she fell. She also has some burning when she urinates. No bleeding no laceration. No hematoma or swelling on the scalp. Associated symptoms-after fall: Denies abdominal pain or chest pain Related Data Previous Rx's Medication Instructions Recorded acetaminophen 325 mg capsule 325 mg PO Q4H PRN fever or pain 08/24/21 #60 caps ibuprofen 800 mg tablet 800 mg PO TID PRN pain #21 tabs 01/08/24 bupropion HCl 150 mg 24 hr tablet, 150 mg PO QAM #30 tabs 03/26/24 extended release (Wellbutrin XL) fluoxetine 40 mg capsule 40 mg PO DAILY #30 caps 03/26/24 hydroxyzine HCl 25 mg tablet 25 mg PO BID PRN anxiety #60 tabs 03/26/24 sulfamethoxazole 800 1 tab PO BID 7 days #14 tabs 05/08/24 mg-trimethoprim 160 mg tablet (Bactrim DS) Allergies Allergy/AdvReac Type Severity Reaction Status Date / Time latex Allergy Intermediate rash Verified 05/08/24 19:47 Review of Systems Const: Denies: fever(s), chills, body aches, change in appetite, fatigue or malaise ENMT: Denies: throat pain, ear or mastoid pain, nasal discharge or nasal congestion Card: Denies: chest pain, edema, dyspnea on exertion or orthopnea Resp: Denies: dyspnea, productive cough or non-productive cough GI: Denies: abdominal pain, nausea, vomiting, hematemesis, coffee ground emesis, diarrhea, constipation, bloating, hematochezia or melena : Reports: dysuria and urinary frequency; Denies: flank pain, difficulty voiding or urinary urgency Skin/Breast: Denies: rash or pruritus PFS ED PFSH: Medical History Depression Psychiatric care PTSD (post-traumatic stress disorder) MDD (major depressive disorder), recurrent episode, mild Abdominal pain in female Oligomenorrhea No pertinent past medical history neghx: htn,dm,thyroid,dvt/pe Asthma has needed her rescue inhaler Surgical History History of elbow surgery (~2011) L elbow Family History Father Diabetes Hypertension Grandfather , old age Diabetes Hypertension Denies family history of Colon cancer Ovarian cancer Heart disease Hypercholesteremia Breast cancer Uterine cancer Thyroid disease Stroke Social History Smoking and tobacco/nicotine status: current every day tobacco/nicotine user Female Reproductive History: Para: 0 Spontaneous abortions: No Physical Exam Const: COMMON NORMALS: no acute distress GENERAL APPEARANCE: cooperative and comfortable ORIENTATION/CONSCIOUSNESS: Yes awake, Yes oriented to person, Yes oriented to place and Yes oriented to time HENMT: COMMON NORMALS: normocephalic, atraumatic, hearing grossly normal bilaterally, external ears normal, EAC's normal, Normal nasal mucous membranes and turbinates present, moist oral mucous membranes and oropharynx normal HEAD & SCALP: normocephalic and atraumatic NOSE: Normal nasal mucous membranes and turbinates present EXTERNAL EAR: Yes external ears normal EXTERNAL AUDITORY CANAL: EAC's normal OTHER: Right TM clear left TM with small amount of serous fluid no sign of drainage no erythema the tympanic membrane Eye: COMMON NORMALS: Equal, round and reactive pupils present, EOMs intact bilaterally, conjunctivae normal and no scleral icterus CONJUNCTIVA: Yes conjunctivae normal PUPIL: Yes Equal, round and reactive pupils present Neck/C-Spine: COMMON NORMALS: full ROM, no lymphadenopathy, supple and no JVD Lymph: LYMPHATIC: no lymphadenopathy noted and no lymphedema noted Resp: COMMON NORMALS: normal respiratory effort, No retractions, No use of accessory muscles and clear to auscultation bilaterally AUSCULTATION: clear to auscultation bilaterally Cardio: COMMON NORMALS: no JVD, regular rate, regular rhythm and No murmurs present (Cardio) RATE: regular rate RHYTHM: regular rhythm GI: COMMON NORMALS: Soft to palpation and No hepatosplenomegaly present AUSCULTATION: Yes normoactive bowel sounds PALPATION: Yes Soft to palpation, No Tenderness to palpation present (GI), No Guarding due to palpation present (GI) and Yes No hepatosplenomegaly present Extremity: COMMON NORMALS: normal to inspection, capillary refill normal, no clubbing, cyanosis or edema, no calf tenderness and no pedal edema Neuro: SENSORIUM/ORIENTATION: Yes oriented to person, Yes oriented to place and Yes oriented to time Skin: COMMON NORMALS: no rashes or lesions noted GENERAL SKIN EXAM: no rashes or lesions noted Course Vital Signs: Vital signs: Vital Signs Temperature 98.4 F 05/08/24 19:40 Pulse Rate 99 05/08/24 19:40 Respiratory Rate 16 05/08/24 19:40 Pulse Oximetry 95 05/08/24 19:40 Oxygen Delivery Me thod Room Air 05/08/24 19:40 MDM - Fall Medical Decision Making Patient does have a moderate hematoma on the right thigh x-ray negative CT of the head negative UA did show cystitis patient ambulates without difficulty. Remaining exam is normal discharge home Bactrim DS 1 p.o. twice daily. Tylenol ibuprofen for aches and pains from the fall follow-up as needed Medical Records I reviewed the patient's medical records. Lab Data I reviewed the patient's lab results. Radiology Impressions Hip/Pelvis X-Ray 05/08/24 20:38 IMPRESSION: No acute fracture or dislocation. Head CT 05/08/24 21:01 IMPRESSION: 1. No acute intracranial findings. 2. Paranasal sinus disease as described above. Laboratory Results HCG, Qual Negative (Negative) 05/08/24 21:17 Urine Color Yellow (Yellow) 05/08/24 21:20 Urine Appearance Turbid (CLEAR) A 05/08/24 21:20 Urine pH 6.0 (5-7) 05/08/24 21:20 Ur Specific [place] 1.029 (1.005-1.030) 05/08/24 21:20 Urine Protein Trace (Negative) A 05/08/24 21:20 Urine Glucose (UA) Negative (Normal) 05/08/24 21:20 Urine Ketones Negative (Negative) 05/08/24 21:20 Urine Blood Negative (Negative) 05/08/24 21:20 Urine Nitrate Negative (Negative) 05/08/24 21:20 Urine Bilirubin Negative (Negative) 05/08/24 21:20 Urine Urobilinogen 1.0 mg/dL (Negative) 05/08/24 21:20 Ur Leukocyte Esterase 1+ (Negative) A 05/08/24 21:20 Urine RBC 21-50 /hpf (0-2) H 05/08/24 21:20 Urine WBC 21-50 /hpf (0-5) H 05/08/24 21:20 Ur Squamous Epith Cells 21-50 /hpf (0-5) 05/08/24 21:20 Amorphous Sediment Not Reportable 05/08/24 21:20 Urine Bacteria 4+ /hpf (NONE) H 05/08/24 21:20 Hyaline Casts 9.91 /lpf 05/08/24 21:20 All radiology interpretation(s) finalized by discharge Discharge Plan Discharge Patient Disposition: Home Clinical Impression: Cystitis, Hematoma of left thigh Condition: Stable Prescriptions: New sulfamethoxazole-trimethoprim [Bactrim DS] 800-160 mg tablet 1 tab PO BID 7 Days Qty: 14 0RF No Action ibuprofen 800 mg tablet 800 mg PO TID PRN (Reason: pain) Qty: 21 0RF bupropion HCl [Wellbutrin XL] 150 mg tablet extended release 24 hr 150 mg PO QAM Qty: 30 2RF fluoxetine 40 mg capsule 40 mg PO DAILY Qty: 30 2RF hydroxyzine HCl 25 mg tablet 25 mg PO BID PRN (Reason: anxiety) Qty: 60 0RF acetaminophen 325 mg capsule 325 mg PO Q4H PRN (Reason: fever or pain) Qty: 60 0RF Discharge Orders: Discharge ED (Routine); Ordered 05/08/24 Ordered By: Rip Suh Referrals: Greta Fry DO [Primary Care Provider] - Discharge Diet: Usual diet Discharge Activity: Increase activity as tolerated Patient Instructions: Opioid Safety, Pain Management Activity Restrictions/Additional Instructions: Thank you for choosing [facility] for your healthcare needs today. It is very important that you follow up as instructed or that you return to the Emergency Department should you have concerns or if your condition changes or worsens in any way. You were seen in the emergency room after a fall. There are some bruising there right thigh no evidence of fracture. CT of your head was negative. Incidental finding of a cystitis (bladder infection). Recommend starting Bactrim 1 tablet twice a day for 7 days. You can use Tylenol and ibuprofen for aches and pains related to your fall. Coding Level of Care Code ED Insurance Verification Representative for Leonides Okeefe
--- NOTE | 2024-05-08 21:01 | CTR_ITS ---
PROCEDURE INFORMATION: Exam: CT Head Without Contrast Exam date and time: 05/08/2024 9:08 PM Age: 23 years old Clinical indication: Injury or trauma; Fall; Blunt trauma (contusions or hematomas); Patient HX: Patient fell in shower. Unsure of loc. TECHNIQUE: Imaging protocol: Computed tomography of the head without contrast. Radiation optimization: All CT scans at this facility use at least one of these dose optimization techniques: automated exposure control; mA and/or kV adjustment per patient size (includes targeted exams where dose is matched to clinical indication); or iterative reconstruction. COMPARISON: CT head wo con* [id number] 05/24/2023 5:59 PM RADIATION DOSE METRICS: Total DLP (mGy-cm): 1058.18 FINDINGS: Brain: No acute intracranial hemorrhage, abnormal extra-axial fluid collection, mass effect, or midline shift. Cerebral ventricles: The ventricular system is within normal limits of variation for the patient's age. Paranasal sinuses: Near complete opacification of the partially imaged left maxillary sinus. Partial opacification of the ethmoid air cells. The frontal sinuses, sphenoid sinuses, and partially imaged right maxillary sinus are grossly clear. Mastoid air cells: Visualized mastoid air cells are well aerated. Bones: No acute fracture. Soft tissues: Grossly unremarkable. CT/CT head wo con* [id number] IMPRESSION: 1. No acute intracranial findings. 2. Paranasal sinus disease as described above.
[2024-05-08 21:31] LABS: Bilirubin Urine Negative (Negative); Blood Urine Negative (Negative); Glucose Urine UA Negative (Normal); Ketones Urine Negative (Negative); Leukocyte Esterase Urine 1+ (Negative); Nitrate Urine Negative (Negative); Protein Urine Trace (Negative); Specific Gravity, Urine 1.029 (1.005-1.030); Urine Appearance Turbid (CLEAR); Urine Color Yellow (Yellow)
[2024-05-08 21:36] LABS: Add Urine Microscopic? YES; Bacteria Urine 4+ /hpf; Hyaline Casts Urine 9.91 /lpf; RBC Urine 21-50 /hpf (0-2); Squamous Epithelial Cell Urine 21-50 /hpf (0-5); Universal Test for UA Present (0); WBC Urine 21-50 /hpf (0-5)
[2024-05-08 21:41] LABS: HCG, Serum Qual Negative (Negative)
[2024-05-08 21:50] LABS: Add Urine Culture? No
[2024-05-08 22:27] VITALS: BP 138/79; PULSE 68; O2SAT 99
== END 2024-05-08 22:28 | disposition home or self-care (01) ==
PROVIDERS: Emergency Provider Family Medicine; PCP Family Medicine
DX: N30.90 Cystitis, unspecified without hematuria (principal); S70.12XA Contusion of left thigh, initial encounter; Z72.0 Tobacco use; W19.XXXA Unspecified fall, initial encounter
CPT/HCPCS: 70450; 73502; 81001; 84703; 99284